=== PATIENT | female | born 1990 | race Hispanic/Latino ===

== ENCOUNTER 2022-03-03 14:50 | Emergency (ER) | payer BC ==
--- OUTSIDE RECORDS SUMMARY | 2022-03-03 14:53 | XMS REPORT | Continuity of Care Document ---
:1990 Author Organization [facility] t Address [address] [place] [address] Care Team Providers Name Role Phone G_Pappas Attending Clinician Unavailable G_Pappas Admitting Clinician Unavailable Payers Payer Name Policy Type Policy Number Effective Date Expiration Date S our [place] WOMEN'S [id number] HEALTH PROGRAM (MEDICAID) Problems Condition Condition Condition Status Onset Resolution Last Treating Co mments Source Name Details Category Date Date Treatment Clinician Date Dysmenorrh Dysmenorrh Problem Active 2019-0 [facility] e[facility] 7-11 da 00:00: Medical 00 Group Menorrhagi Menorrhagi Problem Active 2019-0 [facility] a a 7-11 da 00:00: [facility] 00 Group Oral Oral Problem Active 0 [facility] contracept Contracept 7-01 da ion ion 00:00: Medical 00 Group Condyloma Condyloma Problem Active [facility] acuminata Acuminata da of [facility] Obesity Obesity Problem Active [facility] Anxiety Anxiety Problem Active [facility] Hypertensi Hypertensi Problem Active [facility] ve ve da disorder Disorder [facility]ica [facility] Allergies, Adverse Reactions, Alerts This patient has no known allergies or adverse reactions. Social History Smoking Status Start Date Stop Date Source Former Smoker [facility] Medications Ordered Filled Start Stop Current Ordering Indication Dosage Frequency Signature Comments Components Source Medication Medication Date Date Medication? Clinician (SIG) Name Name acetaminoph acetaminoph No acetaminop [facility] en 300 en 300 hen 300 da mg-codeine mg-codeine mg-codeine Medical 30 mg 30 mg 30 mg Group tablet tablet tablet Bactrim DS Bactrim DS No 1 BID Bactrim DS [facility] 800 mg-160 800 mg-160 800 mg-160 da mg tablet mg tablet mg tablet Medical Take 1 Take 1 Take 1 Group tablet tablet tablet twice a day twice a day twice a by oral by oral day by route for 3 route for 3 oral route days. days. for 3 days. citalopram citalopram No 1 Q1D citalopram [facility] 20 mg 20 mg 20 mg da tablet Take tablet Take tablet Medical 1 tablet 1 tablet Take 1 Group every day every day tablet by oral by oral every day route. route. by oral route. clonazepam clonazepam No clonazepam [facility] 1 mg tablet 1 mg tablet 1 mg d a tablet Medical Group Daysee 0.15 Daysee 0.15 No Daysee [facility] mg-30 mcg mg-30 mcg 0.15 mg-30 da (84)/10 (84)/10 mcg Medical mcg(7) mcg(7) (84)/10 Group tablets,3 tablets,3 mcg(7) month dose month dose tablets,3 pack Take 1 pack Take 1 month dose tablet tablet pack Take every day every day 1 tablet by oral by oral every day route. route. by oral route. meloxicam meloxicam No meloxicam [facility] 15 mg 15 mg 15 mg da tablet tablet tablet Medical Group phentermine phentermine No phentermin [facility] tizanidine tizanidine No tizanidine [facility] 4 mg tablet 4 mg tablet 4 mg d a tablet Medical Group Vital Signs Vital Name Observation Time Observation Value Comments Source BP Diastolic 2020-06-13 00:00:00 93 mm[Hg] [facility] Height 2020-06-13 00:00:00 65 [in_i] [facility] BMI (Body Mass 2020-06-13 00:00:00 37.3 kg/m2 [facility] Group BP Systolic 2020-06-13 00:00:00 132 mm[Hg] [facility] Body Weight 2020-06-13 00:00:00 223.9 [lb_av] [facility] BP Diastolic 2020-05-17 00:00:00 95 mm[Hg] [facility] Height 2020-05-17 00:00:00 65 [in_i] [facility] BMI (Body Mass 2020-05-17 00:00:00 38.2 kg/m2 [facility]) Group BP Systolic 2020-05-17 00:00:00 134 mm[Hg] [facility] Body Weight 2020-05-17 00:00:00 229.7 [lb_av] [facility] BP Diastolic 2019-05-25 00:00:00 92 mm[Hg] [facility] Height 2019-05-25 00:00:00 65 [in_i] [facility] BMI (Body Mass 2019-05-25 00:00:00 40 kg/m2 [facility]) Group BP Systolic 2019-05-25 00:00:00 141 mm[Hg] [facility] Body Weight 2019-05-25 00:00:00 240.3 [lb_av] [facility] BP Diastolic 2019-05-08 00:00:00 90 mm[Hg] [facility] Height 2019-05-08 00:00:00 65 [in_i] [facility] BMI (Body Mass 2019-05-08 00:00:00 40.8 kg/m2 [facility]) Group BP Systolic 2019-05-08 00:00:00 140 mm[Hg] [facility] Body Weight 2019-05-08 00:00:00 245.3 [lb_av] [facility] BP Diastolic 2018-11-22 00:00:00 89 mm[Hg] [facility] Height 2018-11-22 00:00:00 65 [in_i] [facility] BMI (Body Mass 2018-11-22 00:00:00 40.6 kg/m2 [facility] Group BP Systolic 2018-11-22 00:00:00 133 mm[Hg] [facility] Body Weight 2018-11-22 00:00:00 244 [lb_av] [facility] Procedures Procedure Date / Time Performed Performing Clinician Sourc e US, pelvis 2019-05-25 00:00:00 [facility] Caesarean Section 2016-01-06 00:00:00 [facility] Plan of Care Planned Activity Planned Date Details Comments Source Diagnostic Test 2020-06-13 pap, LB + reflex [facility] Pending 00:00:00 to HR HPV if ASC-U Group [code = pap, LB + reflex to HR HPV if ASC-U] Diagnostic Test 2020-06-13 culture, urine [facility] Pending 00:00:00 [code = culture, Group urine] Diagnostic Test 2020-06-13 wet mount, vaginal [facility] Pending 00:00:00 [code = wet mount, Group vaginal] Diagnostic Test 2020-06-13 urinalysis, [facility] 00:00:00 dipstick [code = Group urinalysis, dipstick] Encounters Start End Encounter Admission Attending Care Care Encounter Source Date/Time Date/Time Type Type Clinicians Facility Department ID 2020-09-25 2020-09-25 Outpatient G_Pappas [facility] [id number] [facility] 02:26:00 02:26:00 [facility] 2020-06-14 2020-06-14 Outpatient G_Pappas [facility] [id number] [facility] 12:20:00 12:20:00 807 [facility] 2020-06-13 2020-06-13 Outpatient G_Pappas [facility] [id number] [facility] 04:22:00 04:22:00 [facility] 2020-06-13 2020-06-13 [place] - [id number] Rosalie feldman 00:00:00 00:00:00 [facility] charline Tolliver MD: [address] [place] [phone] , Ph. [phone] 2020-06-01 2020-06-01 Outpatient G_Pappas [facility] [id number] [facility] 12:14:00 12:14:00 805 [facility] 2020-05-19 2020-05-19 Outpatient G_Pappas [facility] [id number] [facility] 10:04:00 10:04:00 712 [facility] 2020-05-17 2020-05-17 Outpatient G_Pappas [facility] [id number] [facility] 05:33:00 05:33:00 710 [facility] 2020-05-17 2020-05-17 [place] - [id number] [facility] 00:00:00 00:00:00 [facility] charline Tolliver MD: [address] [place] [phone] , Ph. [phone] 2019-06-10 2019-06-10 Outpatient G_Pappas [facility] [id number] [place] 11:06:00 11:06:00 709 charline [facility] 2019-05-25 2019-05-25 Kirby [facility] [place] - [id number] [facility] 00:00:00 00:00:00 [facility] charline Tolliver MD: [address] [place] [phone] , Ph. [phone] 2019-05-08 2019-05-08 Mackenzie Davis [facility] [place] - [id number] 1 [facility] 00:00:00 00:00:00 [facility] charline Tanner NP: [address] [place] [phone] , Ph. [phone] 2018-11-22 2018-11-22 Mackenzie Davis [facility] [place] - [id number] 5 [facility] 00:00:00 00:00:00 [facility] charline Tanner NP: [address] [place] [address] [place] [phone] , Ph. [phone] Results Test Description Test Time Test Comments Results Result Comments Source Urinalysis macro (dipstick) panel - Urine 2020-06-13 15:43:3 0 Test Item Value Reference Range Interpretation Comme nts Leukocytes (test code = Leukocytes) Trace Nitrite (test code = Nitrite) positive Urobilinogen (test code = Urobilinogen) .2 Protein (test code = Protein) Negative pH (test code = pH) 7.0 Blood (test code = Blood) Non-Hemolyzed: Trace Specific Milford (test code = Specific [place]) 1.025 Ketone (test code = Ketone) Negative Bilirubin (test code = Bilirubin) Negative Glucose (test code = Glucose) Negative Appearance (test code = Appearance) Slightly Cloudy Color (test code = Color) Yellow [facility] [id number] 08:55:00 Test Item Value Reference Range Interpretation Comments Test (test code = negative Test) [facility], [id number] 10:59:00 Test Item Value Reference Range Interpretation Comments Test (test code = negative Test) [facility], [id number] 10:59:00 Test Item Value Reference Range Interpretation Comments Test (test code = negative Test) [facility] (dipstick) panel - [id number] 10:44:00 Test Item Value Reference Range Interpretation Comments Leukocytes (test code = Negative Leukocytes) Nitrite (test code = negative Nitrite) Urobilinogen (test code = .2 Urobilinogen) Protein (test code = Negative Protein) pH (test code = pH) 7.0 Blood (test code = Blood) Non-Hemolyzed: Trace Specific Milford (test 1.025 code = Specific [place]) Ketone (test code = Negative Ketone) Bilirubin (test code = Negative Bilirubin) Glucose (test code = Negative Glucose) Appearance (test code = Clear Appearance) Color (test code = Color) Yellow [facility] macro (dipstick) panel - [id number] 10:44:00 Test Item Value Reference Range Interpretation Comments Leukocytes (test code = Negative Leukocytes) Nitrite (test code = negative Nitrite) Urobilinogen (test code = .2 Urobilinogen) Protein (test code = Negative Protein) pH (test code = pH) 7.0 Blood (test code = Blood) Non-Hemolyzed: Trace Specific Milford (test 1.025 code = Specific Mil[place]) Ketone (test code = Negative Ketone) Bilirubin (test code = Negative Bilirubin) Glucose (test code = Negative Glucose) Appearance (test code = Clear Appearance) Color (test code = Color) Yellow [facility] W Auto Differential panel - [id number] 09:43:00 Test Item Value Reference Range Interpretation Comments white blood count (test code = 11.8 K/uL 4.0-11.5 H white blood count) red blood count (test code = red 5.34 M/uL 3.80-5.20 H blood count) hemoglobin (test code = 14.6 g/dL 10.5-15.7 hemoglobin) hematocrit (test code = 47.5 % 34.0-50.0 hematocrit) Erythrocyte mean corpuscular 89.0 fL 86-100 volume [Entitic volume] (test code = 91248-9) Erythrocyte mean corpuscular 27.3 pg 26.2-33.4 hemoglobin [Entitic mass] (test code = 23272-5) mean corpuscular HGB conc (test 30.7 g/dL 30-34 code = mean corpuscular HGB conc) red cell distribution width (test 13.4 % 12.0-15.5 code = red cell distribution width) platelet count (test code = 339 K/uL 165-450 platelet count) mean platelet volume (test code = 11.2 fL 9.4-12.6 mean platelet volume) Neutrophils.segmented/100 71.2 % 44.4-80.1 leukocytes in Blood (test code = 15217-9) Ig% (test code = Ig%) 0.5 % 0.0-0.4 H lymphocyte% (test code = 21.9 % 10.0-50.0 lymphocyte%) Monocytes/100 leukocytes in Blood 4.8 % 3.6-12.0 by Automated count (test code = 5905-5) Eosinophils/100 leukocytes in 1.0 % 0.0-5.4 Blood by Automated count (test code = 713-8) Basophils/100 leukocytes in 0.6 % 0.1-1.2 Unspecified specimen (test code = 18873-0) absolute neutrophil count (test 8.40 K/uL 1.56-6.13 H code = absolute neutrophil count) Ig# (test code = Ig#) 0.1 K/uL 0.0-0.03 H Lymphocytes [#/volume] in 2.6 K/uL 1.18-3.74 Unspecified specimen by Automated count (test code = 03974-0) mono # (test code = mono #) 0.57 K/uL 0.24-0.86 eos # (test code = eos #) 0.12 K/uL 0.04-0.36 basophil # (test code = basophil 0.07 K/uL 0.01-0.08 #) NRBC% (test code = NRBC%) 0 /100 WBC 0-0.2 NRBC# (test code = NRBC#) 0 K/uL [facility], [id number] 09:43:00 NeutrophilsBandLymphocyteMonocyteMetamyelocytePlatelet EstimateToxic VacuolationGiant PlateletsMaNorth Mississippi Medical CenterHemoglobin A1c [Mass/volume] in [id number] 09:43:00 Test Item Value Reference Range Interpretation Comments Hemoglobin A1c in Blood (test code = 5.8 % 4.0-6.0 84300-0) [facility] 2000 panel - Serum or Plasma 2019-05-08 09:43:00 Test Item Value Reference Range Interpretation Comments glucose (test code = glucose) 106 mg/dL 74-106 Urea nitrogen [Mass/volume] in 11 mg/dL 6-20 Serum or Plasma (test code = 3094-0) Osmolality of Serum or Plasma 274 280-300 L (test code = 2692-2) creatinine (test code = 0.6 mg/dL 0.50-0.90 creatinine) glomerular filtration rate (test >60.00 code = glomerular filtration rate) Urea nitrogen/Creatinine [Mass 18.3 12-20 Ratio] in Serum or Plasma (test code = 3097-3) sodium level (test code = sodium 137 mmol/L 135-145 level) Potassium [Moles/volume] in Body 4.5 mmol/L 3.5-5.2 fluid (test code = 2821-7) chloride level (test code = 97 mmol/L 98-108 L chloride level) CO2 (test code = CO2) 28 mmol/L 21-32 anion gap (test code = anion gap) 16.5 mEq/L 12-20 calcium level (test code = calcium 9.5 mg/dL 8.6-10.0 level) total protein (test code = total 7.4 g/dL 6.6-8.7 protein) albumin (test code = albumin) 4.1 g/dL 3.5-5.2 globulin (test code = globulin) 3.3 gm/dL A/G ratio (test code = A/G ratio) 1.2 >1.0 bilirubin,total (test code = <0.3 0.0-1.2 bilirubin,total) AST/SGOT (test code = AST/SGOT) 23 U/L 15-32 Alanine aminotransferase 28 U/L 0-33 [Enzymatic activity/volume] in Serum or Plasma (test code = 1742-6) Alkaline phosphatase [Enzymatic 72 U/L 35-105 activity/volume] in Serum or Plasma (test code = 6768-6) [facility]port[facility]yrotropin [Units/volume] in Serum or [id number] 09:43:00 Test Item Value Reference Range Interpretation Comments Thyrotropin [Units/volume] in 1.74 uIU/mL 0.36-3.74 Serum or Plasma (test code = 3016-3) [facility]portChoriogonadotropin.beta subunit [Units/volume] in Serum or [id number] 09:43:00 Test Item Value Reference Range Interpretation Comments HCG quantitative (test code = HCG <0.1 0-5 quantitative) [facility] W Auto Differential panel - [id number] 09:43:00 Test Item Value Reference Range Interpretation Comments white blood count (test code = 11.8 K/uL 4.0-11.5 H white blood count) red blood count (test code = red 5.34 M/uL 3.80-5.20 H blood count) hemoglobin (test code = 14.6 g/dL 10.5-15.7 hemoglobin) hematocrit (test code = 47.5 % 34.0-50.0 hematocrit) Erythrocyte mean corpuscular 89.0 fL 86-100 volume [Entitic volume] (test code = 67435-9) Erythrocyte mean corpuscular 27.3 pg 26.2-33.4 hemoglobin [Entitic mass] (test code = 11431-4) mean corpuscular HGB conc (test 30.7 g/dL 30-34 code = mean corpuscular HGB conc) red cell distribution width (test 13.4 % 12.0-15.5 code = red cell distribution width) platelet count (test code = 339 K/uL 165-450 platelet count) mean platelet volume (test code = 11.2 fL 9.4-12.6 mean platelet volume) Neutrophils.segmented/100 71.2 % 44.4-80.1 leukocytes in Blood (test code = 11046-9) Ig% (test code = Ig%) 0.5 % 0.0-0.4 H lymphocyte% (test code = 21.9 % 10.0-50.0 lymphocyte%) Monocytes/100 leukocytes in Blood 4.8 % 3.6-12.0 by Automated count (test code = 5905-5) Eosinophils/100 leukocytes in 1.0 % 0.0-5.4 Blood by Automated count (test code = 713-8) Basophils/100 leukocytes in 0.6 % 0.1-1.2 Unspecified specimen (test code = 63874-2) absolute neutrophil count (test 8.40 K/uL 1.56-6.13 H code = absolute neutrophil count) Ig# (test code = Ig#) 0.1 K/uL 0.0-0.03 H Lymphocytes [#/volume] in 2.6 K/uL 1.18-3.74 Unspecified specimen by Automated count (test code = 84014-0) mono # (test code = mono #) 0.57 K/uL 0.24-0.86 eos # (test code = eos #) 0.12 K/uL 0.04-0.36 basophil # (test code = basophil 0.07 K/uL 0.01-0.08 #) NRBC% (test code = NRBC%) 0 /100 WBC 0-0.2 NRBC# (test code = NRBC#) 0 K/uL [facility], [id number] 09:43:00 NeutrophilsBandLymphocyteMonocyteMetamyelocytePlatelet EstimateToxic VacuolationGiant PlateletsSinging River GulfportHemoglobin A1c [Mass/volume] in [id number] 09:43:00 Test Item Value Reference Range Interpretation Comments Hemoglobin A1c in Blood (test code = 5.8 % 4.0-6.0 62060-4) [facility] 2000 panel - Serum or Plasma 2019-05-08 09:43:00 Test Item Value Reference Range Interpretation Comments glucose (test code = glucose) 106 mg/dL 74-106 Urea nitrogen [Mass/volume] in 11 mg/dL 6-20 Serum or Plasma (test code = 3094-0) Osmolality of Serum or Plasma 274 280-300 L (test code = 2692-2) creatinine (test code = 0.6 mg/dL 0.50-0.90 creatinine) glomerular filtration rate (test >60.00 code = glomerular filtration rate) Urea nitrogen/Creatinine [Mass 18.3 12-20 Ratio] in Serum or Plasma (test code = 3097-3) sodium level (test code = sodium 137 mmol/L 135-145 level) Potassium [Moles/volume] in Body 4.5 mmol/L 3.5-5.2 fluid (test code = 2821-7) chloride level (test code = 97 mmol/L 98-108 L chloride level) CO2 (test code = CO2) 28 mmol/L 21-32 anion gap (test code = anion gap) 16.5 mEq/L 12-20 calcium level (test code = calcium 9.5 mg/dL 8.6-10.0 level) total protein (test code = total 7.4 g/dL 6.6-8.7 protein) albumin (test code = albumin) 4.1 g/dL 3.5-5.2 globulin (test code = globulin) 3.3 gm/dL A/G ratio (test code = A/G ratio) 1.2 >1.0 bilirubin,total (test code = <0.3 0.0-1.2 bilirubin,total) AST/SGOT (test code = AST/SGOT) 23 U/L 15-32 Alanine aminotransferase 28 U/L 0-33 [Enzymatic activity/volume] in Serum or Plasma (test code = 1742-6) Alkaline phosphatase [Enzymatic 72 U/L 35-105 activity/volume] in Serum or Plasma (test code = 6768-6) [facility]portThyrotropin [Units/volume] in Serum or [id number] 09:43:00 Test Item Value Reference Range Interpretation Comments Thyrotropin [Units/volume] in 1.74 uIU/mL 0.36-3.74 Serum or Plasma (test code = 3016-3) [facility]portChoriogonadotropin.beta subunit [Units/volume] in Serum or [id number] 09:43:00 Test Item Value Reference Range Interpretation Comments HCG quantitative (test code = HCG <0.1 0-5 quantitative) [facility]portChlamydia trachomatis+Neisseria gonorrhoeae DNA [Presence] in Cervix by Probe and target amplification [id number] 09:43:00 ResultsMaNorth Mississippi Medical CenterMicroscopic observation [Identifier] in Cervix by Cyto stain.thin [id number] 00:00:00ResultsMaNorth Mississippi Medical CenterUrinalysis macro (dipstick) panel - [id number] 15:20:22 Test Item Value Reference Range Interpretation Comments Leukocytes (test code = Leukocytes) Trace Nitrite (test code = Nitrite) negative Urobilinogen (test code = .2 Urobilinogen) Protein (test code = Protein) 30 pH (test code = pH) 6.0 Blood (test code = Blood) Moderate Specific Milford (test code = 1.030 Specific [place]) Ketone (test code = Ketone) Small Bilirubin (test code = Bilirubin) Negative Glucose (test code = Glucose) Negative Appearance (test code = Appearance) Clear Color (test code = Color) Yellow [facility] test, [id number] 15:19:02 Test Item Value Reference Range Interpretation Comments Test (test code = negative Test) [facility]
[2022-03-03] MEDS ORDERED: ONDANSETRON 4 MG/2 ML VIAL ONE (15:19)
[2022-03-03] MEDS ORDERED: FAMOTIDINE 20 MG/2 ML VIAL IV ONE (15:19)
[2022-03-03] MEDS ORDERED: NA CHLORIDE 0.9% 1,000 ML ONE (15:19)
[2022-03-03 15:29] LABS: Urine Blood Trace-intact (Negative); Urine Glucose Negative (Negative); Urine Protein Negative (Negative); Urine Specific Gravity >=1.030 (1.005-1.030)
[2022-03-03 15:39] LABS: Hematocrit 44.8 % (36.0-45.0); Lymphocytes % 25.1 % (15.3-44.8); MPV 9.3 fL (7.6-11.3); RBC Red Blood Cell Count 5.02 M/uL (3.86-4.86)
[2022-03-03 15:45] LABS: Albumin 3.5 g/dL (3.4-5.0); Bilirubin Total 0.3 mg/dL (0.2-1.0); Protein, Total 7.8 g/dL (6.4-8.2)
--- NOTE | 2022-03-03 16:13 | RAD REPORT ---
EXAM DESCRIPTION: US - Abdomen Exam Limited - 03/03/2022 4:05 pm CLINICAL HISTORY: right sided abd pain, vomiting COMPARISON: No comparisons FINDINGS: Suboptimal evaluation due to body habitus. At least 1 shadowing gallstone is suspected. No gallbladder wall thickening is identified. No pericholecystic fluid. The common bile duct measures 4 millimeters and is nondilated. IMPRESSION: Cholelithiasis but no sonographic evidence acute cholecystitis.
--- NOTE | 2022-03-03 16:30 | RAD REPORT ---
EXAM DESCRIPTION: CTAbdomen Pelvis W Contrast - 03/03/2022 4:16 pm CLINICAL HISTORY: Abdominal pain, acute, nonlocalized COMPARISON: No comparisons TECHNIQUE: CT of the abdomen and pelvis was performed. All CT scans are performed using dose optimization technique as appropriate and may include automated exposure control or mA/KV adjustment according to patient size. FINDINGS: Lower chest: No acute abnormality. Liver: No acute abnormality or suspicious lesions. Biliary: No biliary ductal dilatation. Stomach: No significant focal abnormality. Duodenum: No significant focal abnormality. Pancreas: No significant abnormality. Spleen: No significant abnormality. Adrenal: No suspicious lesions. Kidney/ureter: No hydronephrosis. Punctate stone in the lower pole left kidney. Too small to characte rize and/or benign appearing renal lesions are noted. Retroperitoneum: No retroperitoneal adenopathy. Vascular: No aneurysm. Bowel: Normal appendix.. Circumferential thickening of the descending and sigmoid colon. Diverticulos is is present but no evidence of acute diverticulitis. Peritoneum: Small fat containing umbilical hernia. Bladder: Grossly unremarkable. Reproductive: No adnexal masses. Bones: No acute fracture. Mild disc height loss at L5-S1. Other: n/a IMPRESSION: Mild colonic wall thickening of the descending and sigmoid colon suggestive of a mild co litis. Normal appendix. No bowel obstruction.
--- NOTE | 2022-03-03 16:52 | EDPHYS ---
Physician Documentation [facility] Name: Kiesha Joiner Age: 31 yrs Sex: Female : 1990 Arrival Date: 03/03/2022 Time: 14:53 Bed 17 Private MD: ED Physician Kojo Doyle HPI: 03/03 15:06 This 31 yrs old Female presents to ER via Unassigned with complaints of rn Nausea/Vomiting. 15:06 The patient presents to the emergency department with nausea, vomiting, abdominal pain, rn of the right lower quadrant. Onset: The symptoms/episode began/occurred 2 day(s) ago. Possible causes: unknown. The symptoms are aggravated by pressure, The symptoms are alleviated by nothing. Associated signs and symptoms: Pertinent positives: abdominal pain, nausea, vomiting, Pertinent negatives: fever. Severity of symptoms: At their worst the symptoms were mild in the emergency department the symptoms are unchanged. The patient has experienced similar episodes in the past. The patient has not recently seen a physician. Pt reports right lower abd pain for 2 days, assoc with nausea and vomiting. Reports seems to happen monthly, comes and then goes, crampy. Reports sometimes worse with food. No hematemesis. Reports stool looks dark/green. . Historical: - Allergies: 15:08 No Known Allergies; ww - PMHx: 15:08 neck pain; ww - PSHx: 15:08 Left ovarian dermoid cyst; ww - Immunization history:: Adult Immunizations up to date. - Social history:: Smoking status: Patient denies any tobacco usage or history of. - Family history:: not pertinent. - Hospitalizations: : No recent hospitalization is reported. ROS: 15:06 Constitutional: Negative for fever, chills, and weight loss, Eyes: Negative for injury, rn pain, redness, and discharge, ENT: Negative for injury, pain, and discharge, Neck: Negative for injury, pain, and swelling, Cardiovascular: Negative for chest pain, palpitations, and edema, Respiratory: Negative for shortness of breath, cough, wheezing, and pleuritic chest pain, Abdomen/GI: Negative for diarrhea, and constipation, Back: Negative for injury and pain, : Negative for injury, bleeding, discharge, and swelling, MS/Extremity: Negative for injury and deformity, Skin: Negative for injury, rash, and discoloration, Neuro: Negative for headache, numbness, tingling, and seizure. Exam: 15:06 Constitutional: This is a well developed, well nourished patient who is awake, alert, rn and in no acute distress. Head/Face: Normocephalic, atraumatic. Eyes: Conjunctiva and sclera are non-icteric and not injected. Periorbital areas with no swelling, redness, or edema. ENT: Mucous membranes moist. Cardiovascular: Regular rate and rhythm. No pulse deficits. Respiratory: No increased work of breathing, no retractions or nasal flaring. Abdomen/GI: soft, + mild RLQ tenderness without guarding or rebound, no masses Skin: Warm, dry MS/ Extremity: Pulses equal, no cyanosis. Neuro: Awake and alert, GCS 15 Vital Signs: 15:06 BP 148 / 99; Pulse 85; Resp 16; Temp 98.6(O); Pulse Ox 100% on R/A; Weight 114.76 kg ww (M); Height 5 ft. 5 in. (165.10 cm); 17:04 BP 124 / 88; Pulse 97; Resp 18; Pulse Ox 98% on R/A; ww 15:06 Body Mass Index 42.10 (114.76 kg, 165.10 cm) ww MDM: 14:56 Patient medically screened. rn 16:51 Differential diagnosis: Nonspecific abd pain, gastritis, cholecystitis, appendicitis, rn diverticulitis, viral gastroenteritis, gastroenteritis, colitis. Data reviewed: vital signs, nurses notes, lab test result(s), radiologic studies, CT scan, ultrasound, and as a result, I will discharge patient. Counseling: I had a detailed discussion with the patient and/or guardian regarding: the historical points, exam findings, and any diagnostic results supporting the discharge/admit diagnosis, lab results, radiology results, the need for outpatient follow up, to return to the emergency department if symptoms worsen or persist or if there are any questions or concerns that arise at home. Response to treatment: the patient's symptoms have mildly improved after treatment, and as a result, I will discharge patient. Special discussion: Based on the patient's Hx, exam, and Dx evaluation, there is no indication for emergent surgery or inpatient Tx. It is understood by the patient/guardian that if the Sx's persist or worsen they need to return immediately for re-evaluation. I discussed with the patient/guardian in detail that at this point there is no indication for admission to the hospital. It is understood, however, that if the symptoms persist or worsen the patient needs to return immediately for re-evaluation. 03/03 15:04 Order name: CBC with Diff; Complete Time: 15:51 rn 03/03 15:04 Order name: CMP; Complete Time: 15:51 rn 03/03 15:04 Order name: Lipase; Complete Time: 15:51 rn 03/03 15:04 Order name: CT Abd/Pelvis - IV Contrast Only; Complete Time: 16:39 rn 03/03 15:29 Order name: Urine Dipstick-Ancillary; Complete Time: 15:51 EDMS 03/03 15:04 Order name: IV Saline Lock; Complete Time: 15:19 rn 03/03 15:04 Order name: Labs collected and sent; Complete Time: 15:19 rn 03/03 15:04 Order name: US Abdomen Limited; Complete Time: 16:19 rn 03/03 15:04 Order name: Urine Dipstick-Ancillary (obtain specimen); Complete Time: 15:30 rn 03/03 15:04 Order name: Urine Test (obtain specimen); Complete Time: 15:31 rn Administered Medications: 15:15 Drug: NS 0.9% 1000 ml Route: IV; Rate: 1 bolus; Site: right antecubital; ww 15:16 Drug: Pepcid (famotidine) 20 mg Route: IVP; Site: right antecubital; ww 15:19 Drug: Zofran (Ondansetron) 4 mg Route: IVP; Site: right antecubital; ww 17:03 Drug: Flagyl (metroNIDAZOLE) 500 mg Volume: 100 ml; Route: IVPB; Rate: 200 ml/hr; ww Infused Over: 30 mins; Site: right antecubital; 17:04 Drug: Cipro (ciprofloxacin) 500 mg Route: PO; ww Disposition Summary: 03/03/22 16:52 Discharge Ordered Location: Home rn Problem: new rn Symptoms: have improved rn Condition: Stable rn Diagnosis - Infectious gastroenteritis and colitis, unspecified rn - Other cholelithiasis without obstruction rn Followup: rn - With: Private Physician - When: As needed - Reason: Recheck today's complaints, Re-evaluation by your physician Discharge Instructions: - Discharge Summary Sheet rn - Cholelithiasis rn - Colitis rn Forms: - Medication Reconciliation Form rn - Thank You Letter rn - Antibiotic rn bone marrow transplant - Prescription Opioid Use rn - Work release form em1 Prescriptions: - Flagyl 500 mg Oral Tablet - take 1 tablet by ORAL route every 8 hours for 10 days; 30 tablet; Refills: 0, rn Product Selection Permitted - Cipro 500 mg Oral Tablet - take 1 tablet by ORAL route every 12 hours for 10 days; 20 tablet; Refills: 0, rn Product Selection Permitted - ondansetron 4 mg Oral tablet,disintegrating - take 1 tablet by ORAL route every 8 hours As needed; 10 tablet; Refills: 0, cp Product Selection Permitted Signatures: Dispatcher [employer] EDKojo Huntley MD MD rn Wood, Whitney, RN RN ww Corrections: (The following items were deleted from the chart) 15:09 15:08 Allergies: Aspirin; oliverio duron
--- NOTE | 2022-03-03 16:52 | ER ---
Nurse's Notes [facility] Name: Kiesha Joiner Age: 31 yrs Sex: Female : 1990 Arrival Date: 03/03/2022 Time: 14:53 Bed 17 Private MD: Diagnosis: Infectious gastroenteritis and colitis, unspecified;Other cholelithiasis without obstruction Presentation: 03/03 15:06 Chief complaint: Patient states: Vomited yesterday and noticed dark stools today with ww right lower abdominal pain. Patient states that she has been having nausea, vomiting and abdominal pain off and on for 3 months. Coronavirus screen: Vaccine status: Patient reports receiving the 2nd dose of the covid vaccine. Client denies travel out of the [place] in the last 14 days. Ebola Screen: Patient denies travel to an Ebola-affected area in the 21 days before illness onset. Initial Sepsis Screen: Does the patient meet any 2 criteria? No. Patient's initial sepsis screen is negative. Does the patient have a suspected source of infection? No. Patient's initial sepsis screen is negative. Risk Assessment: Do you want to hurt yourself or someone else? Patient reports no desire to harm self or others. Onset of symptoms is unknown. 15:06 Method Of Arrival: Ambulatory ww 15:06 Acuity: KONSTANTIN 3 ww Triage Assessment: 15:08 General: Appears in no apparent distress. Behavior is calm, cooperative. Pain: ww Complains of pain in umbilical area, right upper quadrant and right lower quadrant. Neuro: Level of Consciousness is awake, alert, obeys commands, Oriented to person, place, time, situation, Moves all extremities. Gait is steady, Speech is normal. Cardiovascular: Capillary refill Patient's skin is warm and dry. Respiratory: Airway is patent Respiratory effort is even, unlabored, Respiratory pattern is regular, symmetrical. GI: Abdomen is round obese, Reports lower abdominal pain, upper abdominal pain, cramping, diarrhea, nausea, vomiting. Derm: Skin is intact, is healthy with good turgor, Skin is pink, warm \T\ dry. Musculoskeletal: No signs and/or symptoms reported regarding the musculoskeletal system. Historical: - Allergies: 15:08 No Known Allergies; ww - PMHx: 15:08 neck pain; ww - PSHx: 15:08 Left ovarian dermoid cyst; ww - Immunization history:: Adult Immunizations up to date. - Social history:: Smoking status: Patient denies any tobacco usage or history of. - Family history:: not pertinent. - Hospitalizations: : No recent hospitalization is reported. Screenin:10 Abuse screen: Denies threats or abuse. Denies injuries from another. Nutritional ww screening: No deficits noted. Tuberculosis screening: No symptoms or risk factors identified. Fall Risk None identified. Assessment: 15:10 Reassessment: Patient appears in no apparent distress at this time. No changes from ww previously documented assessment. see triage assessment. GI: Abd is soft Abdomen is tender to palpation in epigastric area, umbilical area, right upper quadrant and right lower quadrant. 16:18 Reassessment: Patient appears in no apparent distress at this time. No changes from ww previously documented assessment. Patient and/or family updated on plan of care and expected duration. Pain level reassessed. Patient is alert, oriented x 3, equal unlabored respirations, skin warm/dry/pink. 17:04 Reassessment: Patient appears in no apparent distress at this time. No changes from ww previously documented assessment. Patient and/or family updated on plan of care and expected duration. Pain level reassessed. Patient is alert, oriented x 3, equal unlabored respirations, skin warm/dry/pink. Vital Signs: 15:06 BP 148 / 99; Pulse 85; Resp 16; Temp 98.6(O); Pulse Ox 100% on R/A; Weight 114.76 kg ww (M); Height 5 ft. 5 in. (165.10 cm); 17:04 BP 124 / 88; Pulse 97; Resp 18; Pulse Ox 98% on R/A; ww 15:06 Body Mass Index 42.10 (114.76 kg, 165.10 cm) ww ED Course: 14:53 Patient arrived in ED. ds1 14:56 Kojo Doyle MD is Attending Physician. rn 15:06 Kayla Chu RN is Primary Nurse. ww 15:08 Triage completed. ww 15:10 Arm band placed on. ww 15:10 Patient has correct armband on for positive identification. Bed in low position. Call ww light in reach. Side rails up X 1. Pulse ox on. NIBP on. 15:13 Inserted saline lock: 20 gauge in right antecubital area, using aseptic technique. zm Blood collected. 15:19 Lipase Sent. zm 15:19 CMP Sent. zm 15:19 CBC with Diff Sent. zm 16:07 US Abdomen Limited In Process Unspecified. EDMS 16:18 CT Abd/Pelvis - IV Contrast Only In Process Unspecified. EDMS 17:39 No provider procedures requiring assistance completed. IV discontinued, intact, ww bleeding controlled, No redness/swelling at site. Pressure dressing applied. Administered Medications: 15:15 Drug: NS 0.9% 1000 ml Route: IV; Rate: 1 bolus; Site: right antecubital; ww 15:16 Drug: Pepcid (famotidine) 20 mg Route: IVP; Site: right antecubital; ww 15:19 Drug: Zofran (Ondansetron) 4 mg Route: IVP; Site: right antecubital; ww 17:03 Drug: Flagyl (metroNIDAZOLE) 500 mg Volume: 100 ml; Route: IVPB; Rate: 200 ml/hr; ww Infused Over: 30 mins; Site: right antecubital; 17:04 Drug: Cipro (ciprofloxacin) 500 mg Route: PO; ww Outcome: 16:52 Discharge ordered by . rn 17:39 Discharged to home ambulatory. ww 17:39 Condition: stable 17:39 Discharge instructions given to patient, Instructed on discharge instructions, follow up and referral plans. medication usage, safety practices, Demonstrated understanding of instructions, follow-up care, medications, Prescriptions given X 3. 17:39 Patient left the ED. ww Signatures: Dispatcher [employer] EDNC Lissy Sterling ds1 Kojo Doyle MD MD rn Wood, Whitney, RN RN ww Martinez, Zaina zm Corrections: (The following items were deleted from the chart) 15:09 15:08 Allergies: Aspirin; ww ww
[2022-03-03] MEDS ORDERED: CIPROFLOXACIN HCL 500 MG TAB ONE (17:03)
[2022-03-03] MEDS ORDERED: METRONIDAZOLE 500mg IVPB 500 MG/100 ML BAG IV ONE (17:04)
[2022-03-03 22:17] VITALS: TEMP 98.6
[2022-03-03 22:18] VITALS: BP 124/88; O2SAT 98
== END 2022-03-03 17:39 | disposition home or self-care (01) ==
LOC: ER 14:50
DX: A09 Infectious gastroenteritis and colitis, unspecified (principal); K80.80 Other cholelithiasis without obstruction; R11.2 Nausea with vomiting, unspecified
CPT/HCPCS: 85025; 36415; 81003; 83690; 80053; 74177; 76705; Q9967; J7030; J2405; J3490; 96374; 96375; 99284

== ENCOUNTER 2024-05-17 11:15 | Emergency (ER) | payer BC, OTHER ==
--- OUTSIDE RECORDS SUMMARY | 2024-05-17 11:19 | XMS REPORT | Continuity of Care Document ---
Author Name Unknown Address [address] [facility] [address] [place] [address] [facility] Address [address] [facility] [address] [place] [address] Care Team Providers Care Accessibility Lift Technician Name Role Phone KAYLA LUNDBERG Primary Care Physician UnavailVIRAJ Jesus Attending Clinician Unavailable AMARILYS ZHONG Attending Clinician Unavailable AMARILYS ZHONG Attending Clinician Unavailable VIVEK PEREZ Attending Clinician Unavailable Vivek Perez MD Attending Clinician [phone] ROSSANA NICHOLAS Attending Clinician Unavailable Hawkins_Rosalie Attending Clinician Unavailable Doctor Unassigned, Odin Attending Clinician U CARRI Orr Attending Clinician Unavailable AYANNA_ROSS Attending Clinician Unavailable G_Pappas Attending Clinician Unavailable KIRBY TOLLIVER Attending Clinician UnavailMACKENZIE Farias Attending Clinician Unavailable KIRBY GARZA Attending Clinician UnavailJOANNE mendoza BA Attending Clinician Unavailable MEIR KAYE Attending Clinician Unavailable LEEROY MAI Attending Clinician Unavailable HARSHA ENGEL Attending Clinician Unavailable DAYA RAMIREZ Attending Clinician Unavailable OZIEL GRIFFIN Attending Clinician UnavailJORGE A Crespo Attending Clinician Unavailable AAMRILYS ZHONG Admitting Clinician Unavailable Danna_Rosalie Admitting Clinician Unavailable CARRI DANIEL Admitting Clinician Unavailable CRISTIAN Admitting Clinician Unavailable G_Pappas Admitting Clinician Unavailable KIRBY TOLLIVER Admitting Clinician UnavailHARSHA Francisco Admitting Clinician Unavailable KIRBY GARZA Admitting Clinician Unavailabl e Payers Payer Name Policy Type Policy Number Effective Date Expirati on Date Source [place] [id number] 2019 00:[place]00 [place] [id number] 2023 00[place]00[place] [id number] 2019 00:00:00 [place]ICAID[place] [id number] [facility] (MEDICAID HMO) [id number] Problems Condition Name Condition Details Condition Category Status Onset Date Resolution Date Last Treatment Date Treating Clinician Comments Source Mucopurule nt conjunctiv itis of bilateral eyes Mucopurule nt Conjunctiv itis of Bilateral Eyes Problem Active 07-15 00:00: 00 [facility] Dysmenorrh ea Dysmenorrh ea Problem Active 05-18 00:00: 00 [facility] Menorrhagi a Menorrhagi a Problem Active 05-18 00:00: 00 [facility] Uses oral contracept ion Uses Oral Contracept ion Problem Active 05-08 00:00: 00 [facility] Condyloma acuminata of vulva Condyloma Acuminata of Vulva Problem Active [facility] Obesity Ob[facility] Anxiety Anxiety Problem [facility] Hypertensi ve disorder Hypertensi ve Disorder Problem Active [facility] Allergies, Adverse Reactions, Alerts Allergy Name Allergy Type Status Severity Reaction(s) Onset Date Inactive Date Treating Clinician Comments Source DULOXETI NE DRUG INGREDI Active Hallucinates 01-08 00:00: 00 [facility] Duloxeti ne Propensi ty to adverse reaction s Active Hallucinatio ns 01-08 00:00: 00 [facility] NO KNOWN ALLERGIE S Drug Class Active [facility] Cymbalta Allergy to substanc e Active Severe Other [facility] Tizanidi ne Allergy to substanc e Active Severe Other [facility] Social History Social Habit Start Date Stop Date Quantity Comments Source Sexual orientation [facility] Exposure to SARS-CoV-2 (event) 2022-12-29 00:00:00 2023-01-08 13:56:00 Not sure [facility] Tobacco use and exposure 2023-01-08 00:00:00 2023-01-08 00:00:00 Smokeless tobacco non-user [facility] Alcohol intake 2023-01-08 00:00:00 2023-01-08 00:00:00 Current drinker of alcohol (finding) [facility] Alcohol Comment 2023-01-08 00:00:00 2023-01-08 00:00:00 social [facility] History of Social function 2023-01-08 00:00:00 2023-01-08 00:00:00 [facility] Sex Assigned At 1990 00:00:00 1990 00:00:00 [facility] Smoking Status Start Date Stop Date Source Tobacco smoking consumption unknown [facility] Former Smoker [facility] Never smoked tobacco [facility] Medications Ordered Medication Name Filled Medication Name Start Date Stop Date Current Medication? Ordering Clinician Indication Dosage Frequency Signature (SIG) Comments Components Source gabapentin 100 mg capsule 01-08 00:00: 00 Yes [id number] 100mg Take 1 capsule by mouth in the morning and 1 capsule at noon and 1 capsule in the evening. Take 1 capsule at bedtime for the first week, then can increase to three times per day as tolerated. [facility] acetaminoph en 300 mg-codeine 30 mg tablet acetaminoph en 300 mg-codeine 30 mg tablet No acetaminop hen 300 mg-codeine 30 mg tablet [facility] Bactrim DS 800 mg-160 mg tablet Take 1 tablet twice a day by oral route for 3 days. Bactrim DS 800 mg-160 mg tablet Take 1 tablet twice a day by oral route for 3 days. No 1 BID Bactrim DS 800 mg-160 mg tablet Take 1 tablet twice a day by oral route for 3 days. [facility] citalopram 20 mg tablet Take 1 tablet every day by oral route. citalopram 20 mg tablet Take 1 tablet every day by oral route. No 1 Q1D citalopram 20 mg tablet Take 1 tablet every day by oral route. [facility] clonazepam 1 mg tablet clonazepam 1 mg tablet No clonazepam 1 mg tablet [facility] Daysee 0.15 mg-30 mcg (84)/10 mcg(7) tablets,3 month dose pack Take 1 tablet every day by oral route. Daysee 0.15 mg-30 mcg (84)/10 mcg(7) tablets,3 month dose pack Take 1 tablet every day by oral route. No Daysee 0.15 mg-30 mcg (84)/10 mcg(7) tablets,3 month dose pack Take 1 tablet every day by oral route. [facility] meloxicam 15 mg tablet meloxicam 15 mg tablet No meloxicam 15 mg tablet [facility] phentermine phentermine No ph entermin e [facility] tizanidine 4 mg tablet tizanidine 4 mg tablet No tizanidine 4 mg tablet [facility] clonazepam 1 mg tablet TAKE 1 TABLET BY MOUTH EVERY NIGHT AT BEDTIME NEEDED clonazepam 1 mg tablet TAKE 1 TABLET BY MOUTH EVERY NIGHT AT BEDTIME NEEDED No clonazepam 1 mg tablet TAKE 1 TABLET BY MOUTH EVERY NIGHT AT BEDTIME NEEDED [facility] cyclobenzap rine 10 mg tablet TAKE 1/2-1 TABLET BY MOUTH THREE TIMES DAILY NEEDED cyclobenzap rine 10 mg tablet TAKE 1/2-1 TABLET BY MOUTH THREE TIMES DAILY NEEDED No cyclobenza glenn 10 mg tablet TAKE 1/2-1 TABLET BY MOUTH THREE TIMES DAILY NEEDED [facility] Daysee 0.15 mg-30 mcg (84)/10 mcg(7) tablets,3 month dose pack TAKE 1 TABLET BY MOUTH EVERY DAY Daysee 0.15 mg-30 mcg (84)/10 mcg(7) tablets,3 month dose pack TAKE 1 TABLET BY MOUTH EVERY DAY No Daysee 0.15 mg-30 mcg (84)/10 mcg(7) tablets,3 month dose pack TAKE 1 TABLET BY MOUTH EVERY DAY [facility] diclofenac sodium 75 mg tablet,joseph yed release TAKE 1 TABLET BY MOUTH TWICE DAILY diclofenac sodium 75 mg tablet,joseph yed release TAKE 1 TABLET BY MOUTH TWICE DAILY No diclofenac sodium 75 mg tablet,del ayed release TAKE 1 TABLET BY MOUTH TWICE DAILY [facility] fluconazole 150 mg tablet TAKE 1 TABLET BY MOUTH NOW AND REPEAT IN 3 DAYS fluconazole 150 mg tablet TAKE 1 TABLET BY MOUTH NOW AND REPEAT IN 3 DAYS No fluconazol e 150 mg tablet TAKE 1 TABLET BY MOUTH NOW AND REPEAT IN 3 DAYS [facility] fluoxetine 20 mg capsule TAKE 1 CAPSULE BY MOUTH EVERY DAY fluoxetine 20 mg capsule TAKE 1 CAPSULE BY MOUTH EVERY DAY No fluoxetine 20 mg capsule TAKE 1 CAPSULE BY MOUTH EVERY DAY [facility] hydrocodone 10 mg-acetamin ophen 325 mg tablet TAKE 1 TABLET BY MOUTH THREE TIMES DAILY NEEDED hydrocodone 10 mg-acetamin ophen 325 mg tablet TAKE 1 TABLET BY MOUTH THREE TIMES DAILY NEEDED No hydrocodon e 10 mg-acetami nophen 325 mg tablet TAKE 1 TABLET BY MOUTH THREE TIMES DAILY NEEDED [facility] isotretinoi n 30 mg capsule TAKE ONE CAPSULE BY MOUTH TWICE DAILY WITH FOOD isotretinoi n 30 mg capsule TAKE ONE CAPSULE BY MOUTH TWICE DAILY WITH FOOD No isotretino in 30 mg capsule TAKE ONE CAPSULE BY MOUTH TWICE DAILY WITH FOOD [facility] Otezla 30 mg tablet Otezla 30 mg tablet No Otezla 30 mg tablet [facility] tobramycin 0.3 % eye drops INSTILL 1 DROP INTO AFFECTED EYE(S) BY OPHTHALMIC ROUTE EVERY 4 HOURS tobramycin 0.3 % eye drops INSTILL 1 DROP INTO AFFECTED EYE(S) BY OPHTHALMIC ROUTE EVERY 4 HOURS No tobramycin 0.3 % eye drops INSTILL 1 DROP INTO AFFECTED EYE(S) BY OPHTHALMIC ROUTE EVERY 4 HOURS [facility] Vyvanse 40 mg capsule TAKE 1 CAPSULE BY MOUTH EVERY MORNING Vyvanse 40 mg capsule TAKE 1 CAPSULE BY MOUTH EVERY MORNING No Vyvanse 40 mg capsule TAKE 1 CAPSULE BY MOUTH EVERY MORNING [facility] Vital Signs Vital Name Observation Time Observation Value Comments S ource BMI (Body Mass Index) 2023-07-15 00:00:00 39.5 kg/m2 [facility] dical [facility] Body Weight 2023-07-15 00:00:00 3800 [oz_av] [facility] BP Diastolic 2023-07-15 00:00:00 84 mm[Hg] [facility] BP Systolic 2023-07-15 00:00:00 126 mm[Hg] [facility] Height 2023-07-15 00:00:00 65 [in_i] [facility] BP Diastolic 2020-06-13 00:00:00 93 mm[Hg] [facility] Height 2020-06-13 00:00:00 65 [in_i] [facility] BMI (Body Mass Index) 2020-06-13 00:00:00 37.3 kg/m2 [facility] BP Systolic 2020-06-13 00:00:00 132 mm[Hg] [facility] Body Weight 2020-06-13 00:00:00 223.9 [lb_av] [facility] BP Diastolic 2020-05-17 00:00:00 95 mm[Hg] [facility] Height 2020-05-17 00:00:00 65 [in_i] [facility] BMI (Body Mass Index) 2020-05-17 00:00:00 38.2 kg/m2 [facility] BP Systolic 2020-05-17 00:00:00 134 mm[Hg] [facility] Body Weight 2020-05-17 00:00:00 229.7 [lb_av] [facility] BP Diastolic 2019-05-25 00:00:00 92 mm[Hg] [facility] Height 2019-05-25 00:00:00 65 [in_i] [facility] BMI (Body Mass Index) 2019-05-25 00:00:00 40 kg/m2 [facility] BP Systolic 2019-05-25 00:00:00 141 mm[Hg] [facility] Body Weight 2019-05-25 00:00:00 240.3 [lb_av] [facility] BP Diastolic 2019-05-08 00:00:00 90 mm[Hg] [facility] Height 2019-05-08 00:00:00 65 [in_i] [facility] BMI (Body Mass Index) 2019-05-08 00:00:00 40.8 kg/m2 [facility] BP Systolic 2019-05-08 00:00:00 140 mm[Hg] [facility] Body Weight 2019-05-08 00:00:00 245.3 [lb_av] [facility] BP Diastolic 2018-11-22 00:00:00 89 mm[Hg] [facility] Height 2018-11-22 00:00:00 65 [in_i] [facility] BMI (Body Mass Index) 2018-11-22 00:00:00 40.6 kg/m2 [facility] BP Systolic 2018-11-22 00:00:00 133 mm[Hg] [facility] Body Weight 2018-11-22 00:00:00 244 [lb_av] [facility] Procedures Procedure Date / Time Performed Performing Clinicia n Source PHYSICIAN ORDERS 2023-03-01 05:01:00 Doctor Unas signed, Odin [facility] EXTERNAL PROVIDER RECORDS 2023-01-18 05:01:00 Doctor Unassigned, Odin [facility] ASSIGNMENT OF BENEFITS 2023-01-08 19:57:27 Docto r Unassigned, Odin [facility] US, pelvis 2019-05-25 00:00:00 [facility] Caes[facility] Section 2016-01-06 00:00:00 [facility] Plan of Care Planned Activity Planned Date Details Comments Source Diagnostic Test Pending 2020-06-13 00:00:00 wet mount, vaginal [code = wet mount, vaginal] [facility] Diagnostic Test Pending 2020-06-13 00:00:00 urinalysis, dipstick [code = urinalysis, dipstick] [facility] Diagnostic Test Pending 2020-06-13 00:00:00 pap, LB + reflex to HR HPV if ASC-U [code = pap, LB + reflex to HR HPV if ASC-U] [facility] Diagnostic Test Pending 2020-06-13 00:00:00 culture, urine [code = culture, urine] [facility] Instructions [facility] Encounters Start Date/Time End Date/Time Encounter Type Admission Type Attending [facility] Care Facility Care Department Encounter ID Source 2024-01-21 09:30:00 Inpatient VIRAJ DOMINGO [facility] [id number] [facility] 2024-01-14 15:30:00 Inpatient VIRAJ DOMINGO [facility] [id number] [facility] 2024-02-25 15:58:00 2024-02-25 15:58:00 Outpatient VIRAJ DOMINGO [facility] [id number] [facility] 2023-11-23 09:09:30 2023-11-23 23:59:00 Outpatient VIVEK VINCENT [facility] [id number] [facility] 2023-11-23 09:09:30 2023-11-23 23:59:00 Hospital Vivek Schreiber [facility] OFF[facility] [id number] [facility] 2023-11-04 12:43:00 2023-11-04 12:43:00 Outpatient ROSSANA BOWEN [facility] [id number] [facility] 2023-09-07 00:00:00 2023-09-07 00:00:00 Outpatient Danna_M [facility] [id number] [facility] 2023-07-15 00:00:00 2023-07-15 00:00:00 Outpatient Danna_M [facility] [id number] [facility] 2023-07-15 00:00:00 2023-07-15 00:00:00 Asuncion Clay, INSIDE SALES 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 [facility] [id number] [facility] 2023-07-13 09:30:00 2023-07-13 09:30:00 Outpatient VIVEK VINCENT [facility] [id number] [facility] 2023-03-01 00:00:00 2023-03-01 00:00:00 Orders Only Doctor Unassigned, Odin [facility] [id number] [facility] 2023-01-18 00:00:00 2023-01-18 00:00:00 Orders Only Doctor Unassigned, Odin [facility] [id number] [facility] 2023-01-08 14:15:00 2023-01-08 15:39:22 Outpatient AMARILYS CALDERÓN NATHAN [facility] [id number] [facility] 2023-01-08 00:00:00 2023-01-08 00:00:00 Orders Only Doctor Unassigned, Odin [facility] [id number] [facility] 2023-01-04 07:35:00 2023-01-05 13:12:00 Inpatient ER CARRI DANIEL [facility] [id number] [facility] 2023-01-03 21:20:00 2023-01-03 18:26:00 Inpatient ER Carri Daniel [facility] [id number] [facility] 2022-06-10 00:00:00 2022-06-10 00:00:00 Outpatient AMBREEN_KATERINA LOVE MNANNA [facility] [id number] [facility] 2020-09-25 02:26:00 2020-09-25 02:26:00 Outpatient G_Pappas [facility] [id number] [facility] 2020-06-14 12:20:00 2020-06-14 12:20:00 Outpatient G_Pappas [facility] [id number] [facility] 2020-06-13 16:29:00 2020-06-13 16:29:00 Outpatient KIRBY BURGESS [facility] [id number] [facility] 2020-06-13 00:00:00 2020-06-13 00:00:00 Kirby Tolliver MD: [address] [address] , Ph. [phone] [facility] [id number] [facility] 2020-06-01 12:14:00 2020-06-01 12:14:00 Outpatient G_Pappas [facility] [id number] [facility] 2020-05-19 10:04:00 2020-05-19 10:04:00 Outpatient G_Pappas [facility] [id number] [facility] 2020-05-17 00:00:00 2020-05-17 00:00:00 Kirby Tolliver MD: [address], [place] [address] , Ph. [phone] [facility] [id number] [facility] 2019-06-10 11:06:00 2019-06-10 11:06:00 Outpatient G_Pappas [facility] [id number] [facility] 2019-05-25 00:00:00 2019-05-25 00:00:00 Kirby Tolliver MD: [address], [address], [place] [address] , Ph. [phone] [facility] [id number] [facility] 2019-05-08 11:36:00 2019-05-08 11:36:00 Outpatient MACKENZIE SLATER [facility] [id number] [facility] 2019-05-08 00:00:2019-05-08 00:00:00 Mackenzieshawn Davis [place], WHNP: [address], [address], [place] [address] , Ph. [phone] [facility] [id number] [facility] 2018-11-22 16:10:00 2018-11-22 16:10:00 Outpatient MACKENZIE SLATER [facility] [id number] [facility] 2018-11-22 00:00:00 2018-11-22 00:00:00 Mackenzie Susan Ciro, WHNP: [address] [place] [address] , Ph. [phone] [facility] [id number] [facility] 2016-03-11 07:13:00 2016-03-11 07:13:00 Outpatient KIRBY BURGESS [facility] [id number] [facility] 2016-01-05 18:00:00 2016-01-08 09:30:00 Inpatient KIRBY BURGESS [facility] [id number] [facility] 2015-12-27 11:21:00 2015-12-27 11:21:00 Outpatient KIRBY BURGESS [facility] [id number] [facility] 2015-12-06 16:33:00 2015-12-06 18:37:00 Emergency ER SHAREEKIRBY BALL [facility] [id number] [facility] 2015-11-22 14:56:00 2015-11-22 14:56:00 Outpatient KIRBY BURGESS [facility] [id number] [facility] 2015-10-28 12:56:00 2015-10-28 12:56:00 Outpatient KIRBY ALVAREZ [facility] [id number] [facility] 2015-10-21 08:04:00 2015-10-21 08:04:00 Outpatient KIRBY ALVAREZ [facility] [id number] [facility] 2015-10-14 08:03:00 2015-10-14 08:03:00 Outpatient KIRBY ALVAREZ [facility] [id number] [facility] 2015-08-29 02:39:00 2015-08-29 05:36:00 Emergency ER JOANNE HARPER [facility] [id number] [facility] 2015-08-28 16:07:00 2015-08-28 16:07:00 Outpatient KIRBY ALVAREZ [facility] [id number] [facility] 2015-08-07 14:17:00 2015-08-07 14:17:00 Outpatient KIRBY ALVAREZ [facility] [id number] [facility] 2015-07-01 16:23:00 2015-07-01 16:23:00 Outpatient KIRBY ALVAREZ [facility] [id number] [facility] 2015-06-24 15:33:00 2015-06-24 15:33:00 Outpatient KIRBY ALVAREZ [facility] [id number] [facility] 2015-05-31 10:30:00 2015-05-31 10:30:00 Outpatient KIRBY ALVAREZ [facility] [id number] [facility] 2015-05-20 12:56:00 2015-05-20 16:25:00 Emergency ER MEIR KAYE [facility] [id number] [facility] 2014-12-09 13:52:00 2014-12-09 17:00:00 Emergency ER LEEROY MAI [facility] [id number] [facility] 2014-08-22 17:49:00 2014-08-27 12:26:00 Inpatient ER HARSHA ENGEL [facility] [id number] [facility] 2014-07-14 03:14:00 2014-07-15 17:50:00 Inpatient ER KIRBY GARZA [facility] [id number] [facility] 2014-01-10 10:20:00 2014-01-10 10:20:00 Outpatient DAYA RICE [facility] [id number] [facility] 2011-05-18 20:59:00 2011-05-19 03:57:00 Emergency ER DOMENICLEONIDES OZIEL [facility] [id number] [facility] 2010-10-07 22:17:00 2010-10-08 00:12:00 Emergency ER ELIASOZIEL [facility] [id number] [facility] 2010-10-03 16:00:00 2010-10-03 19:22:00 Emergency ER JORGE A GARCIA [facility] [id number] [facility] Results Test Description Test Time Test Comments Results Result Co mments Source [facility], [id number] 08:55:00* Test Item Value Reference Range Interpretation Comme nts Test (test code = Test) negative [facility], [id number] 10:59:00* Test Item Value Reference Range Interpretation Comme nts Test (test code = Test) negative [facility], [id number] 10:59:00* Test Item Value Reference Range Interpretation Comme nts Test (test code = Test) negative [facility] macro (dipstick) panel - [id number] 10:44:00* Test Item Value Reference Range Interpretation Comme nts Leukocytes (test code = Leukocytes) Negative Nitrite (test code = Nitrite) negative Urobilinogen (test code = Urobilinogen) .2 Protein (test code = Protein) Negative pH (test code = pH) 7.0 Blood (test code = Blood) Non-Hemolyzed: Trace Specific [place] (test code = Specific [place]) 1.025 Ketone (test code = Ketone) Negative Bilirubin (test code = Bilirubin) Negative Glucose (test code = Glucose) Negative Appearance (test code = Appearance) Clear Color (test code = Color) Yellow [facility] - [id number] 10:44:00* Test Item Value Reference Range Interpretation Comme nts Leukocytes (test code = Leukocytes) Negative Nitrite (test code = Nitrite) negative Urobilinogen (test code = Urobilinogen) .2 Protein (test code = Protein) Negative pH (test code = pH) 7.0 Blood (test code = Blood) Non-Hemolyzed: Trace Specific [place] (test code = Specific [place]) 1.025 Ketone (test code = Ketone) Negative Bilirubin (test code = Bilirubin) Negative Glucose (test code = Glucose) Negative Appearance (test code = Appearance) Clear Color (test code = Color) Yellow [facility] - Serum or Plasma 2019-05-08 09:43:00* Test Item Value Reference Range Interpretation Comme nts glucose (test code = glucose) 106 mg/dL 74-106 Urea nitrogen [Mass/volume] in Serum or Plasma (test code = 3094-0) 11 mg/dL 6-20 Osmolality of Serum or Plasm a (test code = 2692-2) 274 280-300 L creatinine (test code = creatinine) 0.6 mg/dL 0.50-0.90 glomerular filtration rate ( test code = glomerular filtration rate) >60.00 Urea nitrogen/Creatinine [Ma ss Ratio] in Serum or Plasma (test code = 3097-3) 18.3 12-20 sodium level (test code = so dium level) 137 mmol/L 135-145 Potassium [Moles/volume] in Body fluid (test code = 2821-7) 4.5 mmol/L 3.5-5.2 chloride level (test code = chloride level) 97 mmol/L 98-108 L CO2 (test code = CO2) 28 mmol/L 21-32 anion gap (test code = anion gap) 16.5 mEq/L 12-20 calcium level (test code = c alcium level) 9.5 mg/dL 8.6-10.0 total protein (test code = t otal protein) 7.4 g/dL 6.6-8.7 albumin (test code = albumin) 4.1 g/dL 3.5-5.2 globulin (test code = globulin) 3.3 gm/dL A/G ratio (test code = A/G ratio) 1.2 >1.0 bilirubin,total (test code = bilirubin,total) <0.3 0.0-1.2 AST/SGOT (test code = AST/SGOT) 23 U/L 15-32 Alanine aminotransferase [Enzymatic activity/volume] in Serum or Plasma (test code = 1742-6) 28 U/L 0-33 Alkaline phosphatase [Enzyma tic activity/volume] in Serum or Plasma (test code = 6768-6) 72 U/L 35-105 [facility] [Units/volume] in Serum or [id number] 09:43:00* Test Item Value Reference Range Interpretation Comme nts Thyrotropin [Units/volume] i n Serum or Plasma (test code = 3016-3) 1.74 uIU/mL 0.36-3.74 [facility]horiogonadotropin.beta subunit [Units/volume] in Serum or [id number] 09:43:00* Test Item Value Reference Range Interpretation Comme nts HCG quantitative (test code = HCG quantitative) <0.1 0-5 [facility] W Auto Differential panel - [id number] 09:43:00 * Test Item Value Reference Range Interpretation Comme nts white blood count (test code = white blood count) 11.8 K/uL 4.0-11.5 H red blood count (test code = red blood count) 5.34 M/uL 3.80-5.20 H hemoglobin (test code = hemoglobin) 14.6 g/dL 10.5-15.7 hematocrit (test code = hematocrit) 47.5 % 34.0-50.0 Erythrocyte mean corpuscular volume [Entitic volume] (test code = 08258-5) 89.0 fL 86-100 Erythrocyte mean corpuscular hemoglobin [Entitic mass] (test code = 96367-2) 27.3 pg 26.2-33.4 mean corpuscular HGB conc (t est code = mean corpuscular HGB conc) 30.7 g/dL 30-34 red cell distribution width (test code = red cell distribution width) 13.4 % 12.0-15.5 platelet count (test code = platelet count) 339 K/uL 165-450 mean platelet volume (test c ode = mean platelet volume) 11.2 fL 9.4-12.6 Neutrophils.segmented/100 leukocytes in Blood (test code = 78660-7) 71.2 % 44.4-80.1 Ig% (test code = Ig%) 0.5 % 0.0-0.4 H lymphocyte% (test code = lymphocyte%) 21.9 % 10.0-50.0 Monocytes/100 leukocytes in Blood by Automated count (test code = 5905-5) 4.8 % 3.6-12.0 Eosinophils/100 leukocytes i n Blood by Automated count (test code = 713-8) 1.0 % 0.0-5.4 Basophils/100 leukocytes in Unspecified specimen (test code = 09586-6) 0.6 % 0.1-1.2 absolute neutrophil count (t est code = absolute neutrophil count) 8.40 K/uL 1.56-6.13 H Ig# (test code = Ig#) 0.1 K/uL 0.0-0.03 H Lymphocytes [#/volume] in Unspecified specimen by Automated count (test code = 43185-2) 2.6 K/uL 1.18-3.74 mono # (test code = mono #) 0.57 K/uL 0.24-0.86 eos # (test code = eos #) 0.12 K/uL 0.04-0.36 basophil # (test code = baso delmy #) 0.07 K/uL 0.01-0.08 NRBC% (test code = NRBC%) 0 /100 WBC 0-0.2 NRBC# (test code = NRBC#) 0 K/uL [facility], [id number] 09:43:00 NeutrophilsBandLymphocyteMonocyteMetamyelocytePlatelet EstimateToxic VacuolationGiant PlateletsMatagorda Medical GroupHemoglobin A1c [Mass/volume] in [id number] 09:43:00* Test Item Value Reference Range Interpretation Comme nts Hemoglobin A1c in Blood ([facility] t code = 49624-2) 5.8 % 4.0-6.0 [facility] HospitalComprehensive metabolic 2000 panel - Serum or Plasma 2019-05-08 09:43:00* Test Item Value Reference Range Interpretation Comme nts glucose (test code = glucose) 106 mg/dL 74-106 Urea nitrogen [Mass/volume] in Serum or Plasma (test code = 3094-0) 11 mg/dL 6-20 Osmolality of Serum or Plasm a (test code = 2692-2) 274 280-300 L creatinine (test code = creatinine) 0.6 mg/dL 0.50-0.90 glomerular filtration rate ( test code = glomerular filtration rate) >60.00 Urea nitrogen/Creatinine [Ma ss Ratio] in Serum or Plasma (test code = 3097-3) 18.3 12-20 sodium level (test code = so dium level) 137 mmol/L 135-145 Potassium [Moles/volume] in Body fluid (test code = 2821-7) 4.5 mmol/L 3.5-5.2 chloride level (test code = chloride level) 97 mmol/L 98-108 L CO2 (test code = CO2) 28 mmol/L 21-32 anion gap (test code = anion gap) 16.5 mEq/L 12-20 calcium level (test code = c alcium level) 9.5 mg/dL 8.6-10.0 total protein (test code = t otal protein) 7.4 g/dL 6.6-8.7 albumin (test code = albumin) 4.1 g/dL 3.5-5.2 globulin (test code = globulin) 3.3 gm/dL A/G ratio (test code = A/G ratio) 1.2 >1.0 bilirubin,total (test code = bilirubin,total) <0.3 0.0-1.2 AST/SGOT (test code = AST/SGOT) 23 U/L 15-32 Alanine aminotransferase [Enzymatic activity/volume] in Serum or Plasma (test code = 1742-6) 28 U/L 0-33 Alkaline phosphatase [Enzyma tic activity/volume] in Serum or Plasma (test code = 6768-6) 72 U/L 35-105 [facility] HospitalThyrotropin [Units/volume] in Serum or [id number] 09:43:00* Test Item Value Reference Range Interpretation Comme nts Thyrotropin [Units/volume] i n Serum or Plasma (test code = 3016-3) 1.74 uIU/mL 0.36-3.74 [facility] HospitalChoriogonadotropin.beta subunit [Units/volume] in Serum or [id number] 09:43:00* Test Item Value Reference Range Interpretation Comme nts HCG quantitative (test code = HCG quantitative) <0.1 0-5 [facility] HospitalChlamydia trachomatis+Neisseria gonorrhoeae DNA [Presence] in Cervix by Probe and target amplification [id number] 09:43:00 ResultsMataLackey Memorial HospitalCB W Auto Differential panel - [id number] 09:43:00* Test Item Value Reference Range Interpretation Comme nts white blood count (test code = white blood count) 11.8 K/uL 4.0-11.5 H red blood count (test code = red blood count) 5.34 M/uL 3.80-5.20 H hemoglobin (test code = hemoglobin) 14.6 g/dL 10.5-15.7 hematocrit (test code = hematocrit) 47.5 % 34.0-50.0 Erythrocyte mean corpuscular volume [Entitic volume] (test code = 16683-4) 89.0 fL 86-100 Erythrocyte mean corpuscular hemoglobin [Entitic mass] (test code = 24547-0) 27.3 pg 26.2-33.4 mean corpuscular HGB conc (t est code = mean corpuscular HGB conc) 30.7 g/dL 30-34 red cell distribution width (test code = red cell distribution width) 13.4 % 12.0-15.5 platelet count (test code = platelet count) 339 K/uL 165-450 mean platelet volume (test c ode = mean platelet volume) 11.2 fL 9.4-12.6 Neutrophils.segmented/100 leukocytes in Blood (test code = 86530-0) 71.2 % 44.4-80.1 Ig% (test code = Ig%) 0.5 % 0.0-0.4 H lymphocyte% (test code = lymphocyte%) 21.9 % 10.0-50.0 Monocytes/100 leukocytes in Blood by Automated count (test code = 5905-5) 4.8 % 3.6-12.0 Eosinophils/100 leukocytes i n Blood by Automated count (test code = 713-8) 1.0 % 0.0-5.4 Basophils/100 leukocytes in Unspecified specimen (test code = 31216-7) 0.6 % 0.1-1.2 absolute neutrophil count (t est code = absolute neutrophil count) 8.40 K/uL 1.56-6.13 H Ig# (test code = Ig#) 0.1 K/uL 0.0-0.03 H Lymphocytes [#/volume] in Unspecified specimen by Automated count (test code = 60308-6) 2.6 K/uL 1.18-3.74 mono # (test code = mono #) 0.57 K/uL 0.24-0.86 eos # (test code = eos #) 0.12 K/uL 0.04-0.36 basophil # (test code = baso delmy #) 0.07 K/uL 0.01-0.08 NRBC% (test code = NRBC%) 0 /100 WBC 0-0.2 NRBC# (test code = NRBC#) 0 K/uL [facility], [id number] 09:43:00 NeutrophilsBandLymphocyteMonocyteMetamyelocytePlatelet EstimateToxic VacuolationGiant PlateletsMaNeshoba County General HospitalHemoglobin A1c [Mass/volume] in [id number] 09:43:00* Test Item Value Reference Range Interpretation Comme nts Hemoglobin A1c in Blood (jose t code = 04618-2) 5.8 % 4.0-6.0 [facility] HospitalMicroscopic observation [Identifier] in Cervix by Cyto stain.thin [id number] 00:00:00ResultsMaNeshoba County General HospitalUrinalysis macro (dipstick) panel - [id number] 15:20:22* Test Item Value Reference Range Interpretation Comme nts Leukocytes (test code = Leukocytes) Trace Nitrite (test code = Nitrite) negative Urobilinogen (test code = Urobilinogen) .2 Protein (test code = Protein) 30 pH (test code = pH) 6.0 Blood (test code = Blood) Moderate Specific [place] (test code = Specific [place]) 1.030 Ketone (test code = Ketone) Small Bilirubin (test code = Bilirubin) Negative Glucose (test code = Glucose) Negative Appearance (test code = Appearance) Clear Color (test code = Color) Yellow [facility] Hospitalpregnancy test, [id number] 15:19:02* Test Item Value Reference Range Interpretation Comme nts Test (test code = Test) negative [facility]
[2024-05-17 12:41] LABS: SARS-CoV-2 Antigen CONTROL BLUE LINE VIS/BG OK; SARS-CoV-2 Antigen Rapid Res Negative (Negative)
[2024-05-17 12:48] LABS: Specific Gravity 1.022 (1.005-1.030); Sqamous Epithelial <5 /HPF (None Seen); Urine Bacteria >50 /HPF (<20); Urine Bilirubin NEGATIVE (Negative); Urine Blood Trace (Negative); Urine Clarity Extremely Turbid (Clear); Urine Color Yellow (Yellow); Urine Culture Reflex Order REFLEXED; Urine Glucose NEGATIVE (Negative); Urine Ketones NEGATIVE (Negative); Urine Microscopic Reflex YN ORDER UMIC; Urine Mucus 1+ /HPF (None Seen); Urine Nitrite 2+ (Negative); Urine Protein TRACE (Negative); Urine Urobilinogen Normal (Normal); Urine WBC >50 /HPF (<5)
--- NOTE | 2024-05-17 14:32 | ER ---
Nurse's Notes [facility] Name: Kiesha Joiner Age: 33 yrs Sex: Female : 1990 Arrival Date: 05/17/2024 Time: 11:15 Bed 27 Private MD: Diagnosis: UTI/ Urinary tract infection, site not specified Presentation: 05/17 11:59 Chief complaint: Patient states: Pain with urination, headache, nausea, abdominal jl7 pain/cramps since yesterday. Coronavirus screen: fatigue, headache, Client presents with at least one sign or symptom that may indicate coronavirus-19. Ebola Screen: No symptoms or risks identified at this time. Initial Sepsis Screen: Does the patient meet any 2 criteria? No. Patient's initial sepsis screen is negative. Does the patient have a suspected source of infection? No. Patient's initial sepsis screen is negative. Risk Assessment: Do you want to hurt yourself or someone else? Patient reports no desire to harm self or others. Onset of symptoms was May 16, 2024. 11:59 Method Of Arrival: Ambulatory [facility] 11:59 Acuity: OKNSTANTIN 3 jl7 Triage Assessment: 12:01 General: Appears in no apparent distress. uncomfortable, Behavior is calm, cooperative, jl7 appropriate for age. Pain: Complains of pain in abdomen \T\ [place]. Neuro: No deficits noted. Cardiovascular: No deficits noted. Respiratory: No deficits noted. GI: Reports nausea. : Reports pain with urination. Derm: Skin is pink, warm \T\ dry. 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 - Infectious Disease History:: Denies. - Social history:: Smoking status: Patient denies any tobacco usage or history of. - Family history:: not pertinent. - Hospitalizations: : No recent hospitalization is reported. Screenin:00 [facility] ED Fall Risk Assessment (Adult) History of falling in the last 3 months, jl7 including since admission No falls in past 3 months (0 pts) Confusion or Disorientation No (0 pts) Intoxicated or Sedated No (0 pts) Impaired Gait No (0 pts) Mobility Assist Device Used No (0 pt) Altered Elimination No (0 pt) Score/Fall Risk Level 0 - 2 = Low Risk Oriented to surroundings, Maintained a safe environment. Abuse screen: Denies threats or abuse. Denies injuries from another. Nutritional screening: No deficits noted. Tuberculosis screening: No symptoms or risk factors identified. Assessment: 13:06 Reassessment: Patient appears in no apparent distress at this time. Patient and/or jb4 family updated on plan of care and expected duration. Pain level reassessed. Patient is alert, oriented x 3, equal unlabored respirations, skin warm/dry/pink. 14:00 Reassessment: Patient appears in no apparent distress at this time. No changes from [facility] previously documented assessment. Patient and/or family updated on plan of care and expected duration. Pain level reassessed. Patient is alert, oriented x 3, equal unlabored respirations, skin warm/dry/pink. Vital Signs: 11:59 BP 142 / 82; Pulse 89; Resp 17; Temp 99.2; Pulse Ox 99% ; Weight 104.33 kg; Height 5 jl7 ft. 4 in. ; Pain 7/10; 14:16 BP 118 / 87; Pulse 90; Resp 15; Temp 98.2; Pulse Ox 98% ; jl7 11:59 Body Mass Index 39.48 (104.33 kg, 162.56 cm) [facility] 11:59 Pain Scale: Adult [facility] ED Course: 11:17 Patient arrived in ED. im 11:59 Kojo Doyle MD is Attending Physician. rn 12:01 Triage completed. jl7 12:01 Arm band placed on right wrist. Patient placed in waiting room, Patient notified of 7 wait time. 12:05 COVID swab sent to lab. Flu and/or RSV swab sent to lab. Strep swab sent to lab. jl7 12:27 Urine collected: clean catch specimen, clear. jl7 12:32 Urinalysis w/ reflexes Sent. jb4 12:36 Patient placed in an exam room, on a stretcher. jl7 14:00 Patient has correct armband on for positive identification. Bed in low position. Call [facility] light in reach. Side rails up X 1. 14:00 No provider procedures requiring assistance completed. Patient did not have IV access jl7 during this emergency room visit. 14:11 Santana Wise, RN is Primary Nurse. jl7 14:44 Provided Education on: discharge. jl7 Administered Medications: 14:43 Drug: Ciprofloxacin PO 500 mg PO once Route: PO; jl7 14:43 Follow up: Response: Medication administered at discharge. jl7 14:43 Drug: Ondansetron PO 4 mg PO once Route: PO; jl7 14:43 Follow up: Response: Medication administered at discharge. jl7 Medication: 14:00 VIS not applicable for this client. jl7 Outcome: 14:00 Discharged to home ambulatory, jl7 14:00 Condition: stable 14:00 Discharge instructions given to patient, family, Instructed on discharge instructions, follow up and referral plans. medication usage, Demonstrated understanding of instructions, follow-up care, medications, Prescriptions given X 2, 14:32 Discharge ordered by . rn 14:44 Patient left the ED. jl7 Signatures: Kojo Doyle MD MD rn Bryson, James RN RN jb4 Santana Wise, RN RN jl7 Delia Orr Corrections: (The following items were deleted from the chart) 12:01 12:01 Allergies: No Known Allergies; 7 jl7
--- NOTE | 2024-05-17 14:32 | EDPHYS ---
Physician Documentation [facility] Name: Kiesha Joiner Age: 33 yrs Sex: Female : 1990 Arrival Date: 05/17/2024 Time: 11:15 Bed 27 Private MD: ED Physician Kojo Doyle HPI: 05/17 12:58 This 33 yrs old Female presents to ER via Ambulatory with complaints of rn Nausea, Pain With Urination, Headache, Cramps. 12:58 The patient presents to the emergency department with nausea. Onset: The rn symptoms/episode began/occurred 2 day(s) ago. Possible causes: unknown. The symptoms are aggravated by nothing. The symptoms are alleviated by nothing. Severity of symptoms: At their worst the symptoms were mild in the emergency department the symptoms are unchanged. The patient has not experienced similar symptoms in the past. Patient reports subjective fever, chills, headache, malaise, nausea and dysuria. Patient feels like she might have a urine infection. Also reports exposure to COVID recently.. 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 - Infectious Disease History:: Denies. - Social history:: Smoking status: Patient denies any tobacco usage or history of. - Family history:: not pertinent. - Hospitalizations: : No recent hospitalization is reported. ROS: 12:58 Constitutional: Negative for fever, chills, and weight loss, ENT: Positive for nasal rn drainage and sore throat Neck: Negative for injury, pain, and swelling, Cardiovascular: Negative for chest pain, palpitations, and edema, Respiratory: Negative for shortness of breath, cough, wheezing, and pleuritic chest pain, Abdomen/GI: Positive for nausea MS/Extremity: Negative for injury and deformity, Skin: Negative for injury, rash, and discoloration, Neuro: Positive for headache and generalized weakness/malaise Exam: 12:58 Constitutional: This is a well developed, well nourished patient who is awake, alert, rn and in no acute distress. Head/Face: Normocephalic, atraumatic. ENT: Moist mucous membranes, no stridor Cardiovascular: Regular rate and rhythm. No pulse deficits. Respiratory: No increased work of breathing, no retractions or nasal flaring. Abdomen/GI: Soft, nontender MS/ Extremity: Pulses equal, no cyanosis. Neurovascular intact. Full, normal range of motion. Equal circumference. Neuro: Awake and alert, GCS 15, oriented to person, place, time, and situation. Cranial nerves II-XII grossly intact. Motor strength 5/5 in all extremities. Sensory grossly intact. Cerebellar exam normal. Normal gait. Vital Signs: 11:59 BP 142 / 82; Pulse 89; Resp 17; Temp 99.2; Pulse Ox 99% ; Weight 104.33 kg; Height 5 jl7 ft. 4 in. ; Pain 7/10; 14:16 BP 118 / 87; Pulse 90; Resp 15; Temp 98.2; Pulse Ox 98% ; jl7 11:59 Body Mass Index 39.48 (104.33 kg, 162.56 cm) [facility] 11:59 Pain Scale: Adult jl7 MDM: 11:59 Patient medically screened. rn 14:31 Differential diagnosis: UTI, COVID. Data reviewed: vital signs, nurses notes, lab test rn result(s), and as a result, I will discharge patient. Counseling: I had a detailed discussion with the patient and/or guardian regarding the historical points, exam findings, and any diagnostic results supporting the discharge/admit diagnosis, lab results, the need for outpatient follow up, to return to the emergency department if symptoms worsen or persist or if there are any questions or concerns that arise at home. Response to treatment: the patient's symptoms have mildly improved after treatment. Special discussion: I discussed with the patient/guardian in detail that at this point there is no indication for admission to the hospital. It is understood, however, that if the symptoms persist or worsen the patient needs to return immediately for re-evaluation. 05/17 12:03 Order name: SARS RAPID; Complete Time: 12:58 rn 05/17 12:03 Order name: Flu rn 05/17 12:03 Order name: Strep rn 05/17 12:03 Order name: Urinalysis w/ reflexes; Complete Time: 12:58 rn 05/17 12:51 Order name: Urine Culture EDMS 05/17 12:51 Order name: Throat Culture EDMS Administered Medications: 14:43 Drug: Ciprofloxacin PO 500 mg PO once Route: PO; jl7 14:43 Follow up: Response: Medication administered at discharge. jl7 14:43 Drug: Ondansetron PO 4 mg PO once Route: PO; jl7 14:43 Follow up: Response: Medication administered at discharge. 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 - Prescription Opioid Use rn - Patient Portal Instructions rn - Leadership Thank You Letter rn - Work release form jl7 Prescriptions: - ondansetron 4 mg Oral Tablet,disintegrating - take 1 tablet ORAL route every 8 hours As needed; 15 tablet; Refills: 0, rn Product Selection Permitted - Cipro 500 mg Oral Tablet - take 1 tablet ORAL route every 12 hours for 7 days; 14 tablet; Refills: 0, rn Product Selection Permitted Signatures: Dispatcher [employer] Kojo Medeiros MD MD rn Leal, Jahala, RN RN jl7 Corrections: (The following items were deleted from the chart) 12:01 12:01 Allergies: No Known Allergies; jl7 jl7
[2024-05-17] MEDS ORDERED: ONDANSETRON 4 MG (ODT) TAB ONE (14:34)
[2024-05-17] MEDS ORDERED: CIPROFLOXACIN HCL 500 MG TAB ONE (14:34)
[2024-05-17 16:26] VITALS: BP 118/87; TEMP 98.2; O2SAT 98
== END 2024-05-17 14:44 | disposition home or self-care (01) ==
LOC: ER 11:15
DX: N39.0 Urinary tract infection, site not specified (principal); Z11.52 Encounter for screening for COVID-19
CPT/HCPCS: 87070; 87088; 81001; 87086; 36415; 87081; 87077; 87186; 87804 ×2; 99284; 87811; Q0162

== ENCOUNTER 2024-11-09 12:20 | Emergency (ER) | payer BC, OTHER ==
--- OUTSIDE RECORDS SUMMARY | 2024-11-09 12:24 | XMS REPORT | Continuity of Care Document ---
Author Name Unknown Address [address] [facility] [address] [facility] Address [address] [facility] [address] 1 [address] [place] [address] Care Team Providers Care Shipping And Receiving Associate Name Role Phone KAYLA LUNDBERG Primary Care Physician UnavailVIRAJ Jesus Attending Clinician Unavailable AMERICA WISE Attending Clinician UnavailFILOMENA Jade Attending Clinician Unavailab AMARILYS Myles Attending Clinician Unavailable AMARILYS ZHONG Attending Clinician Unavailable VIVEK PEREZ Attending Clinician Unavailable Vivek Perez MD Attending Clinician [phone] ROSSANA NICHOLAS Attending Clinician Unavailable Hawmyah_Rosalie Attending Clinician Unavailable Doctor Unassigned, [place] Attending Clinician U navailable CARRI DANIEL Attending Clinician Unavailable G_Papjerald Attending Clinician Unavailable KIRBY TOLLIVER Attending Clinician UnavailMACKENZIE Farias Attending Clinician Unavailable KIRBY GARZA Attending Clinician UnavailJOANNE mendoza BA Attending Clinician Unavailable MEIR KAYE Attending Clinician Unavailable LEEROY MAI Attending Clinician Unavailable HARSHA ENGEL Attending Clinician Unavailable DAYA RAMIREZ Attending Clinician Unavailable OZIEL GRIFFIN Attending Clinician Unavailab JORGE A [place] Attending Clinician Unavailable AMARILYS ZHONG Admitting Clinician Unavailable Hawmyah_Rosalie Admitting Clinician Unavailable CARRI DANIEL Admitting Clinician Unavailable G_Pappas Admitting Clinician Unavailable KIRBY TOLLIVER Admitting Clinician UnavailHARSHA Francisco Admitting Clinician Unavailable KIRBY GARZA Admitting Clinician Unavailabl e Payers Payer Name Policy Type Policy Number Effective Date Expirati on Date Source [place] [id number] 2019 00:[place]:00 [place] [place] [id number] 2023 00[place] [id number] 2019 00:00:00 [place]MEDICAID[place] [id number] [facility] (MEDICAID HMO) [id number] Problems Condition Name Condition Details Condition Category [...] Contracept ion Problem Active 05-08 00:00: 00 [facility] Condyloma acuminata of vulva Condyloma Acuminata of Vulva Problem [facility] Obesity Obesity Problem Active [facility] Anxiety Anxiety Problem Active [facility] Hypertensi ve disorder Hypertensi ve Disorder Problem Active [facility] Allergies, Adverse Reactions, Alerts Allergy Name Allergy Type Status Severity Reaction(s) Onset Date Inactive Date Treating Clinician Comments Source DULOXETI NE DRUG INGREDI Active Hallucinates 01-08 00:00: 00 [facility] Duloxeti ne Propensi ty to adverse reaction s Active Hallucinatio ns 01-08 00:00: 00 [facility] NO KNOWN ALLERGIE S Drug Class Active [facility] Cymbalta Allergy to substanc e Active Severe Other [facility] Tizanidi ne Allergy to substanc e Active Severe Other [facility] Social History Social Habit Start Date Stop Date Quantity Comments Source Sexual orientation [facility] Exposure to SARS-CoV-2 (event) 2022-12-29 00:00:00 2023-01-08 13:56:00 Not sure [facility] Tobacco use and exposure 2023-01-08 00:00:00 2023-01-08 00:00:00 Smokeless tobacco non-user [facility] Alcohol intake 2023-01-08 00:00:00 2023-01-08 00:00:00 Current drinker of alcohol (finding) [facility] Alcohol Comment 2023-01-08 00:00:00 2023-01-08 00:00:00 social [facility] History of Social function 2023-01-08 00:00:00 2023-01-08 00:00:00 [facility] Sex Assigned At 1990 00:00:00 1990 00:00:00 [facility] Smoking Status Start Date Stop Date Source Former Smoker [facility] Tobacco smoking consumption unknown [facility] Never smoked tobacco [facility] Medications Ordered Medication Name Filled Medication Name Start Date Stop Date Current Medication? Ordering Clinician Indication Dosage Frequency Signature (SIG) Comments Components Source gabapentin 100 mg capsule 01-08 00:00: 00 Yes [id number] 100mg Take 1 capsule by mouth in the morning and 1 capsule at noon and 1 capsule in the evening. Take 1 capsule at bedtime for the first week, then can increase to three times per day as tolerated. [facility] acetaminoph en 300 mg-codeine 30 mg tablet acetaminoph en 300 mg-codeine 30 mg tablet No acetaminop hen 300 mg-codeine 30 mg tablet [facility] Bactrim DS 800 mg-160 mg tablet Take 1 tablet twice a day by oral route for 3 days. Bactrim DS 800 mg-160 mg tablet Take 1 tablet twice a day by oral route for 3 days. No 1 BID Bactrim DS 800 mg-160 mg tablet Take 1 tablet twice a day by oral route for 3 days. [facility] citalopram 20 mg tablet Take 1 tablet every day by oral route. citalopram 20 mg tablet Take 1 tablet every day by oral route. No 1 Q1D citalopram 20 mg tablet Take 1 tablet every day by oral route. [facility] clonazepam 1 mg tablet clonazepam 1 mg tablet No clonazepam 1 mg tablet [facility] Daysee 0.15 mg-30 mcg (84)/10 mcg(7) tablets,3 month dose pack Take 1 tablet every day by oral route. Daysee 0.15 mg-30 mcg (84)/10 mcg(7) tablets,3 month dose pack Take 1 tablet every day by oral route. No Daysee 0.15 mg-30 mcg (84)/10 mcg(7) tablets,3 month dose pack Take 1 tablet every day by oral route. [facility] meloxicam 15 mg tablet meloxicam 15 mg tablet No meloxicam 15 mg tablet [facility] phentermine phentermine No ph entermin e [facility] tizanidine 4 mg tablet tizanidine 4 mg tablet No tizanidine 4 mg tablet [facility] clonazepam 1 mg tablet TAKE 1 TABLET BY MOUTH EVERY NIGHT AT BEDTIME NEEDED clonazepam 1 mg tablet TAKE 1 TABLET BY MOUTH EVERY NIGHT AT BEDTIME NEEDED No clonazepam 1 mg tablet TAKE 1 TABLET BY MOUTH EVERY NIGHT AT BEDTIME NEEDED [facility] cyclobenzap rine 10 mg tablet TAKE 1/2-1 TABLET BY MOUTH THREE TIMES DAILY NEEDED cyclobenzap rine 10 mg tablet TAKE 1/2-1 TABLET BY MOUTH THREE TIMES DAILY NEEDED No cyclobenza glenn 10 mg tablet TAKE 1/2-1 TABLET BY MOUTH THREE TIMES DAILY NEEDED [facility] Daysee 0.15 mg-30 mcg (84)/10 mcg(7) tablets,3 month dose pack TAKE 1 TABLET BY MOUTH EVERY DAY Daysee 0.15 mg-30 mcg (84)/10 mcg(7) tablets,3 month dose pack TAKE 1 TABLET BY MOUTH EVERY DAY No Daysee 0.15 mg-30 mcg (84)/10 mcg(7) tablets,3 month dose pack TAKE 1 TABLET BY MOUTH EVERY DAY [facility] diclofenac sodium 75 mg tablet,joseph yed release TAKE 1 TABLET BY MOUTH TWICE DAILY diclofenac sodium 75 mg tablet,joseph yed release TAKE 1 TABLET BY MOUTH TWICE DAILY No diclofenac sodium 75 mg tablet,del ayed release TAKE 1 TABLET BY MOUTH TWICE DAILY [facility] fluconazole 150 mg tablet TAKE 1 TABLET BY MOUTH NOW AND REPEAT IN 3 DAYS fluconazole 150 mg tablet TAKE 1 TABLET BY MOUTH NOW AND REPEAT IN 3 DAYS No fluconazol e 150 mg tablet TAKE 1 TABLET BY MOUTH NOW AND REPEAT IN 3 DAYS [facility] fluoxetine 20 mg capsule TAKE 1 CAPSULE BY MOUTH EVERY DAY fluoxetine 20 mg capsule TAKE 1 CAPSULE BY MOUTH EVERY DAY No fluoxetine 20 mg capsule TAKE 1 CAPSULE BY MOUTH EVERY DAY [facility] hydrocodone 10 mg-acetamin ophen 325 mg tablet TAKE 1 TABLET BY MOUTH THREE TIMES DAILY NEEDED hydrocodone 10 mg-acetamin ophen 325 mg tablet TAKE 1 TABLET BY MOUTH THREE TIMES DAILY NEEDED No hydrocodon e 10 mg-acetami nophen 325 mg tablet TAKE 1 TABLET BY MOUTH THREE TIMES DAILY NEEDED [facility] isotretinoi n 30 mg capsule TAKE ONE CAPSULE BY MOUTH TWICE DAILY WITH FOOD isotretinoi n 30 mg capsule TAKE ONE CAPSULE BY MOUTH TWICE DAILY WITH FOOD No isotretino in 30 mg capsule TAKE ONE CAPSULE BY MOUTH TWICE DAILY WITH FOOD [facility] Otezla 30 mg tablet Otezla 30 mg tablet No Otezla 30 mg tablet [facility] tobramycin 0.3 % eye drops INSTILL 1 DROP INTO AFFECTED EYE(S) BY OPHTHALMIC ROUTE EVERY 4 HOURS tobramycin 0.3 % eye drops INSTILL 1 DROP INTO AFFECTED EYE(S) BY OPHTHALMIC ROUTE EVERY 4 HOURS No tobramycin 0.3 % eye drops INSTILL 1 DROP INTO AFFECTED EYE(S) BY OPHTHALMIC ROUTE EVERY 4 HOURS [facility] Vyvanse 40 mg capsule TAKE 1 CAPSULE BY MOUTH EVERY MORNING Vyvanse 40 mg capsule TAKE 1 CAPSULE BY MOUTH EVERY MORNING No Vyvanse 40 mg capsule TAKE 1 CAPSULE BY MOUTH EVERY MORNING [facility] Vital Signs Vital Name Observation Time Observation Value Comments S ource BMI (Body Mass Index) 2023-07-15 00:00:00 39.5 kg/m2 [facility] dical [facility] Body Weight 2023-07-15 00:00:00 3800 [oz_av] [facility] BP Diastolic 2023-07-15 00:00:00 84 mm[Hg] [facility] BP Systolic 2023-07-15 00:00:00 126 mm[Hg] [facility] Height 2023-07-15 00:00:00 65 [in_i] [facility] BP Diastolic 2020-06-13 00:00:00 93 mm[Hg] [facility] Height 2020-06-13 00:00:00 65 [in_i] [facility] BMI (Body Mass Index) 2020-06-13 00:00:00 37.3 kg/m2 [facility] BP Systolic 2020-06-13 00:00:00 132 mm[Hg] [facility] Body Weight 2020-06-13 00:00:00 223.9 [lb_av] [facility] BP Diastolic 2020-05-17 00:00:00 95 mm[Hg] [facility] Height 2020-05-17 00:00:00 65 [in_i] [facility] BMI (Body Mass Index) 2020-05-17 00:00:00 38.2 kg/m2 [facility] BP Systolic 2020-05-17 00:00:00 134 mm[Hg] [facility] Body Weight 2020-05-17 00:00:00 229.7 [lb_av] [facility] BP Diastolic 2019-05-25 00:00:00 92 mm[Hg] [facility] Height 2019-05-25 00:00:00 65 [in_i] [facility] BMI (Body Mass Index) 2019-05-25 00:00:00 40 kg/m2 [facility] BP Systolic 2019-05-25 00:00:00 141 mm[Hg] [facility] Body Weight 2019-05-25 00:00:00 240.3 [lb_av] [facility] BP Diastolic 2019-05-08 00:00:00 90 mm[Hg] [facility] Height 2019-05-08 00:00:00 65 [in_i] [facility] BMI (Body Mass Index) 2019-05-08 00:00:00 40.8 kg/m2 [facility] BP Systolic 2019-05-08 00:00:00 140 mm[Hg] [facility] Body Weight 2019-05-08 00:00:00 245.3 [lb_av] [facility] BP Diastolic 2018-11-22 00:00:00 89 mm[Hg] [facility] Height 2018-11-22 00:00:00 65 [in_i] [facility] BMI (Body Mass Index) 2018-11-22 00:00:00 40.6 kg/m2 [facility] BP Systolic 2018-11-22 00:00:00 133 mm[Hg] [facility] Body Weight 2018-11-22 00:00:00 244 [lb_av] [facility] Procedures Procedure Date / Time Performed Performing Clinicia n Source PHYSICIAN ORDERS 2023-03-01 05:01:00 Doctor Unas signed, [place] [facility] EXTERNAL PROVIDER RECORDS 2023-01-18 05:01:00 Doctor Unassigned, [place] [facility] ASSIGNMENT OF BENEFITS 2023-01-08 19:57:27 Docto r Unassigned, [place] [facility] US, pelvis 2019-05-25 [facility] 2016-01-06 00:00:00 [facility] Plan of Care Planned Activity Planned Date Details Comments Source Diagnostic Test Pending 2020-06-13 00:00:00 wet mount, vaginal [code = wet mount, vaginal] [facility] Diagnostic Test Pending 2020-06-13 00:00:00 urinalysis, dipstick [code = urinalysis, dipstick] [facility] Diagnostic Test Pending 2020-06-13 00:00:00 pap, LB + reflex to HR HPV if ASC-U [code = pap, LB + reflex to HR HPV if ASC-U] [facility] Diagnostic Test Pending 2020-06-13 00:00:00 culture, urine [code = culture, urine] [facility] Instructions [facility] Encounters Start Date/Time End Date/Time Encounter Type Admission Type Attending [facility] Care Facility Care Department Encounter ID Source 2024-01-21 09:30:00 Inpatient VIRAJ DOMINGO [facility] [id number] [facility] 2024-01-14 15:30:00 Inpatient VIRAJ DOMINGO [facility] [id number] [facility] 2024-11-07 17:19:00 2024-11-07 20:40:00 Emergency ER AMERICA WISE [facility] [id number] [facility] 2024-09-17 20:24:00 2024-09-18 03:25:00 Emergency ER FILOMENA COLINDRES [facility] [id number] [facility] 2024-02-25 15:58:00 2024-02-25 15:58:00 Outpatient VIRAJ DOMINGO [facility] [id number] [facility] 2023-11-23 09:09:30 2023-11-23 23:59:00 Outpatient VIVEK [facility] [id number] [facility] 2023-11-23 09:09:30 2023-11-23 23:59:00 Hospital Encounter Vivek Perez [facility] [id number] [facility] 2023-11-04 12:43:00 2023-11-04 12:43:00 Outpatient ROSSANA BOWEN [facility] [id number] [facility] 2023-09-07 00:00:00 2023-09-07 00:00:00 Outpatient Hawkins_M [facility] MM [id number] [facility] 2023-07-15 00:00:00 2023-07-15 00:00:00 Outpatient Hawkins_M MMG MMG [id number] [facility] 2023-07-15 00:00:00 2023-07-15 00:00:00 Asuncion Clay, RECEIVING ROOM CLERK: [address] [facility], [address], [place] [address] , Ph. [facility] [id number] [facility] 2023-07-13 09:30:00 2023-07-13 09:30:00 Outpatient VIVEK [facility] [id number] [facility] 2023-03-01 00:00:00 2023-03-01 00:00:00 Orders Only Doctor Unassigned, [place] [facility] [id number] [facility] 2023-01-18 00:00:00 2023-01-18 00:00:00 Orders Only Doctor Unassigned, [place] [facility] [id number] [id number] [facility] 2023-01-08 14:15:00 2023-01-08 15:39:22 Outpatient AMARILYS CALDERÓN [facility] [id number] [facility] 2023-01-08 00:00:00 2023-01-08 00:00:00 Orders Only Doctor Unassigned, [place] [facility] [id number] [facility] 2023-01-04 07:35:00 2023-01-05 13:12:00 Inpatient ER CARRI DANIEL [facility] [id number] [facility] 2023-01-03 21:20:00 2023-01-03 18:26:00 Inpatient ER Carri Daniel [facility] [id number] [facility] 2020-09-25 02:26:00 2020-09-25 02:26:00 Outpatient G_Pappas [facility] [id number] [facility] 2020-06-14 12:20:00 2020-06-14 12:20:00 Outpatient G_Pappas [facility] MMG [id number] [facility] 2020-06-13 16:29:00 2020-06-13 16:29:00 Outpatient KIRBY BURGESS [facility] [id number] [facility] 2020-06-13 00:00:00 2020-06-13 00:00:00 Kirby Tolliver MD: [address] [facility] [address], [place] [address] , Ph. [phone] G_Pappas MMG [facility] - OBGYN [id number] [facility] 2020-06-01 12:14:00 2020-06-01 12:14:00 Outpatient G_Pappas MMG MMG [id number] [facility] 2020-05-19 10:04:00 2020-05-19 10:04:00 Outpatient G_Pappas MMG MMG [id number] [facility] 2020-05-17 00:00:00 2020-05-17 00:00:00 Kirby Tolliver MD: [address] [facility] [address] [address] , Ph. [phone] G_Pappas MMG [facility] - OBGYN [id number] [facility] 2019-06-10 11:06:00 2019-06-10 11:06:00 Outpatient G_Pappas MMG MMG [id number] [facility] 2019-05-25 00:00:00 2019-05-25 00:00:00 Kirby Tolliver MD: [address] [facility], [address], [place] [address] , Ph. [phone] [facility] [id number] [facility] 2019-05-08 11:36:00 2019-05-08 11:36:00 Outpatient MACKENZIE SLATER [facility] [id number] [facility] 2019-05-08 00:00:00 2019-05-08 00:00:00 Mackenzieshawn Davis Ciro, NP: [address] [facility], [address] [address] , Ph. [phone] MM[facility] 30 701 [facility] 2018-11-22 16:10:00 2018-11-22 16:10:00 Outpatient MACKENZIE SLATER [facility] [id number] [facility] 2018-11-22 00:00:00 2018-11-22 00:00:00 Mackenzie Susanmarie Tanner, NP: [address] [place] [address] , Ph. [phone] [facility] - OBGYN Sharee [id number] [facility] 2016-03-11 07:13:00 2016-03-11 07:13:00 Outpatient KIRBY BURGESS [facility] [id number] [facility] 2016-01-05 18:00:00 2016-01-08 09:30:00 Inpatient EL SHAREEKIRBY BALL [facility] [id number] [facility] 2015-12-27 11:21:00 2015-12-27 11:21:00 Outpatient EL SHAREEKIRBY BALL [facility] [id number] [facility] 2015-12-06 16:33:00 2015-12-06 18:37:00 Emergency ER SHAREE, KIRBY [facility] [id number] [facility] 2015-11-22 14:56:00 2015-11-22 14:56:00 Outpatient ZULEYMA TOLLIVER KRIBY [facility] [id number] [facility] 2015-10-28 12:56:00 2015-10-28 12:56:00 Outpatient KIRBY ALVAREZ [facility] [id number] [facility] 2015-10-21 08:04:00 2015-10-21 08:04:00 Outpatient KIRBY ALVAREZ [facility] [id number] [facility] 2015-10-14 08:03:00 2015-10-14 08:03:00 Outpatient KIRBY ALVAREZ [facility] [id number] [facility] 2015-08-29 02:39:00 2015-08-29 05:36:00 Emergency ER JOANNE HARPER [facility] [id number] [facility] 2015-08-28 16:07:00 2015-08-28 16:07:00 Outpatient KIRBY ALVAREZ [facility] [id number] [facility] 2015-08-07 14:17:00 2015-08-07 14:17:00 Outpatient KIRBY ALVAREZ [facility] [id number] [facility] 2015-07-01 16:23:00 2015-07-01 16:23:00 Outpatient KIRBY ALVAREZ [facility] [id number] [facility] 2015-06-24 15:33:00 2015-06-24 15:33:00 Outpatient KIRBY ALVAREZ [facility] [id number] [facility] 2015-05-31 10:30:00 2015-05-31 10:30:00 Outpatient KIRBY ALVAREZ [facility] [id number] [facility] 2015-05-20 12:56:00 2015-05-20 16:25:00 Emergency ER VARGAS MEIR [facility] [id number] [facility] 2014-12-09 13:52:00 2014-12-09 17:00:00 Emergency ER LEEROY MAI [facility] [id number] [facility] 2014-08-22 17:49:00 2014-08-27 12:26:00 Inpatient ER HARSHA ENGEL [facility] [id number] [facility] 2014-07-14 03:14:00 2014-07-15 17:50:00 Inpatient ER KIRBY GARZA [facility] [id number] [facility] 2014-01-10 10:20:00 2014-01-10 10:20:00 Outpatient DAYA RICE [facility] [id number] [facility] 2011-05-18 20:59:00 2011-05-19 03:57:00 Emergency ER OZIEL GRIFFIN [facility] [id number] [facility] 2010-10-07 22:17:00 2010-10-08 00:12:00 Emergency ER ELIASBUCKYSHAKA [facility] [id number] [facility] 2010-10-03 16:00:00 2010-10-03 19:22:00 Emergency ER TAHMINA GARCIAHI [facility] [id number] [facility] Results Test Description Test Time Test Comments Results Result Co mments Source [facility], [id number] 08:55:00* Test Item Value Reference Range Interpretation Comme nts Test (test code = Test) negative [facility], [id number] 10:59:00* Test Item Value Reference Range Interpretation Comme nts Test (test code = Test) negative [facility] Group[facility]inalysis macro (dipstick) panel - [id number] 10:44:00* Test Item Value Reference Range Interpretation Comme nts Leukocytes (test code = Leukocytes) Negative Nitrite (test code = Nitrite) negative Urobilinogen (test code = Urobilinogen) .2 Protein (test code = Protein) Negative pH (test code = pH) 7.0 Blood (test code = Blood) Non-Hemolyzed: Trace Specific Eden (test code = Specific Eden) 1.025 Ketone (test code = Ketone) Negative Bilirubin (test code = Bilirubin) Negative Glucose (test code = Glucose) Negative Appearance (test code = Appearance) Clear Color (test code = Color) Yellow [facility] W Auto Differential panel - [id number] 09:43:00 * Test Item Value Reference Range Interpretation Comme nts white blood count (test code = white blood count) 11.8 K/uL 4.0-11.5 H red blood count (test code = red blood count) 5.34 M/uL 3.80-5.20 H hemoglobin (test code = hemoglobin) 14.6 g/dL 10.5-15.7 hematocrit (test code = hematocrit) 47.5 % 34.0-50.0 Erythrocyte mean corpuscular volume [Entitic volume] (test code = 28043-4) 89.0 fL 86-100 Erythrocyte mean corpuscular hemoglobin [Entitic mass] (test code = 15451-2) 27.3 pg 26.2-33.4 mean corpuscular HGB conc (t est code = mean corpuscular HGB conc) 30.7 g/dL 30-34 red cell distribution width (test code = red cell distribution width) 13.4 % 12.0-15.5 platelet count (test code = platelet count) 339 K/uL 165-450 mean platelet volume (test c ode = mean platelet volume) 11.2 fL 9.4-12.6 Neutrophils.segmented/100 leukocytes in Blood (test code = 90806-0) 71.2 % 44.4-80.1 Ig% (test code = Ig%) 0.5 % 0.0-0.4 H lymphocyte% (test code = lymphocyte%) 21.9 % 10.0-50.0 Monocytes/100 leukocytes in Blood by Automated count (test code = 5905-5) 4.8 % 3.6-12.0 Eosinophils/100 leukocytes i n Blood by Automated count (test code = 713-8) 1.0 % 0.0-5.4 Basophils/100 leukocytes in Unspecified specimen (test code = 72003-0) 0.6 % 0.1-1.2 absolute neutrophil count (t est code = absolute neutrophil count) 8.40 K/uL 1.56-6.13 H Ig# (test code = Ig#) 0.1 K/uL 0.0-0.03 H Lymphocytes [#/volume] in Unspecified specimen by Automated count (test code = 79227-4) 2.6 K/uL 1.18-3.74 mono # (test code = mono #) 0.57 K/uL 0.24-0.86 eos # (test code = eos #) 0.12 K/uL 0.04-0.36 basophil # (test code = baso delmy #) 0.07 K/uL 0.01-0.08 NRBC% (test code = NRBC%) 0 /100 WBC 0-0.2 NRBC# (test code = NRBC#) 0 K/[facility]L [facility], [id number] 09:43:00 NeutrophilsBandLymphocyteMonocyteMetamyelocytePlatelet EstimateToxic VacuolationGiant PlateletsMerit Health Woman'S HospitalHemoglobin A1c [Mass/volume] in [id number] 09:43:00* Test Item Value Reference Range Interpretation Comme nts Hemoglobin A1c in Blood (jose t code = 19167-5) 5.8 % 4.0-6.0 [facility] HospitalComprehensive metabolic 2000 panel - Serum or [...] (test code = 6768-6) 72 U/L 35-105 [facility] HospitalThyrotropin [Units/volume] in Serum or [id number] 09:43:00* Test Item Value Reference Range Interpretation Comme nts Thyrotropin [Units/volume] i n Serum or Plasma (test code = 3016-3) 1.74 uIU/mL 0.36-3.74 [facility] HospitalChoriogonadotropin.beta subunit [Units/volume] in Serum or [id number] 09:43:00* Test Item Value Reference Range Interpretation Comme nts HCG quantitative (test code = HCG quantitative) <0.1 0-5 [facility] HospitalChlamydia trachomatis+Neisseria gonorrhoeae DNA [Presence] in Cervix by Probe and target amplification [id number] 09:43:00 ResultsMatagoTurning Point Mature Adult Care UnitMicroscopic observation [Identifier] in Cervix by Cyto stain.thin [id number] 00:00:00ResultsMatagoTurning Point Mature Adult Care UnitUrinalysis macro (dipstick) panel - [id number] 15:20:22* Test Item Value Reference Range Interpretation Comme nts Leukocytes (test code = Leukocytes) Trace Nitrite (test code = Nitrite) negative Urobilinogen (test code = Urobilinogen) .2 Protein (test code = Protein) 30 pH (test code = pH) 6.0 Blood (test code = Blood) Moderate Specific Eden (test code = Specific Eden) 1.030 Ketone (test code = Ketone) Small Bilirubin (test code = Bilirubin) Negative Glucose (test code = Glucose) Negative Appearance (test code = Appearance) Clear Color (test code = Color) Yellow [facility] Hospitalpregnancy test, [id number] 15:19:02* Test Item Value Reference Range Interpretation Comme nts Test (test code = Test) negative [facility]
[2024-11-09] MEDS ORDERED: ONDANSETRON 4 MG/2 ML VIAL ONE (13:49)
[2024-11-09] MEDS ORDERED: NA CHLORIDE 0.9% 1,000 ML ONE (13:49)
[2024-11-09 14:02] LABS: Absolute Basophils 0.1 K/uL (0-0.5); Absolute Lymphocytes (CBC) 1.9 K/uL (0.7-4.9); Absolute Monocytes 0.6 K/uL (0.1-1.3); Absolute Neutrophil 6.3 K/uL (1.8-8.0); Basophils % 1.1 % (0-1.3); Eosinophils % 0.1 % (0-4.4); Hematocrit 47.1 % (36.0-45.0); Hemoglobin 15.5 g/dL (12.0-15.0); Lymphocytes % 21.6 % (15.3-44.8); MCH 29.8 pg (27.0-35.0); MCV 90.5 fL (80-100); MPV 9.6 fL (7.6-11.3); Monocytes % 6.7 % (3.3-12.3); Neutrophils % 70.5 % (41.7-73.7); Nucleated Red Blood Cells % 0.2 % (0-0); Platelets 328 thou/uL (152-406); RBC Red Blood Cell Count 5.21 M/uL (3.86-4.86); Red Cell Distribution Width 13.1 % (12.1-15.2)
[2024-11-09 14:08] LABS: Albumin 3.9 g/dL (3.4-5.0); Anion Gap 11.2 mEq/L (5.0-15.0); Bilirubin Total 0.7 mg/dL (0.2-1.0); Globulin 4.1 g/dL (2.3-3.5); Potassium 3.2 mEq/L (3.5-5.1)
[2024-11-09] MEDS ORDERED: MORPHINE 4 MG/ML SYR ONE (14:13)
[2024-11-09] MEDS ORDERED: FAMOTIDINE 20 MG/2 ML VIAL IV ONE (14:13)
[2024-11-09 14:36] LABS: Specific Gravity 1.027 (1.005-1.030)
[2024-11-09 14:38] LABS: Specific Gravity 1.027 (1.005-1.030); Sqamous Epithelial <5 /HPF (None Seen); Urine Bacteria None Seen /HPF (<20); Urine Bilirubin NEGATIVE (Negative); Urine Blood 3+ (Negative); Urine Clarity Turbid (Clear); Urine Color Yellow (Yellow); Urine Crystals Unidentified Few /HPF (None Seen); Urine Culture Reflex Order NOT NEEDED; Urine Glucose NEGATIVE (Negative); Urine Ketones 3+ (Negative); Urine Microscopic Reflex YN ORDER UMIC; Urine Mucus 2+ /HPF (None Seen); Urine Nitrite NEGATIVE (Negative); Urine Protein 1+ (Negative); Urine RBC >50 /HPF (None Seen); Urine Urobilinogen Normal (Normal); Urine WBC <5 /HPF (<5); Urine WBC Clump Rare /HPF (None Seen); Urine Yeast (Budding) Trace /HPF (None Seen); Urine pH 6.5 (5.0-7.0)
--- NOTE | 2024-11-09 14:45 | RAD REPORT ---
EXAM: Right upper quadrant ultrasound. CLINICAL HISTORY: ABD PAIN COMPARISON: 03/03/2022 FINDINGS: Gallbladder: Prominent gallstone present in the gallbladder. Bile ducts: No intrahepatic or extrahepatic biliary dilatation. Common bile duct measures 2 mm. Limited imaging of the liver shows no concerning finding. IMPRESSION: Cholelithiasis.
--- NOTE | 2024-11-09 15:02 | RAD REPORT ---
EXAMINATION: CT ABDOMEN AND PELVIS WITH CONTRAST CLINICAL INDICATION: ABD PAIN TECHNIQUE: CT abdomen and pelvis was performed, after the administration of IV contrast, as [facility]. Axial, sagittal and coronal reconstructions were obtained. One or more of the following dose reduction techniques were used: Automated exposure control, adjustment of the mA and k V according to patient size, and iterative reconstruction. Unless otherwise specified, incidental findings do not require dedicated imaging follow-up. COMPARISON: 03/03/2022 FINDINGS: LOWER CHEST: The visualized lung bases are clear. LIVER: Normal in size and contour. No focal lesion. Grossly unremarkable gallbladder. SPLEEN: Normal size. No focal lesion. PANCREAS: No mass, ductal dilation, or marilee-pancreatic fluid. ADRENALS: Normal; no mass. KIDNEYS: Punctate calculi in both kidneys without hydronephrosis. GASTROINTESTINAL TRACT: No evidence of free air, significant intra-abdominal free fluid, bowel obstru ction or abscess. Mild sigmoid diverticulosis without diverticulitis. APPENDIX: Appendix measures up to 7 mm without surrounding inflammation. LYMPH NODES: No lymphadenopathy. MUSCULOSKELETAL: No acute or suspicious osseous abnormality. ADDITIONAL FINDINGS: None. IMPRESSION: No acute or concerning abnormalities seen in the abdomen or pelvis.
--- NOTE | 2024-11-09 15:37 | EDPHYS ---
Physician Documentation [facility] Name: Kiesha Joiner Age: 34 yrs Sex: Female : 1990 Arrival Date: 11/09/2024 Time: 12:20 Bed 16 Private MD: ED Physician Ortega Villalpando HPI: 11/09 15:27 This 34 yrs old Female presents to ER via Ambulatory with complaints of yue Abdominal Pain, Nausea/Vomiting. 15:27 The patient presents to the emergency department with nausea, that is mild, that is yue moderate, vomiting, that is intermittent. Onset: The symptoms/episode began/occurred 4 day(s) ago. Possible causes: unknown. The symptoms are aggravated by food , The symptoms are alleviated by remaining still. Associated signs and symptoms: Pertinent positives: abdominal pain, diarrhea, nausea, vomiting. Severity of symptoms: At their worst the symptoms were mild moderate in the emergency department the symptoms are unchanged. The patient has experienced similar episodes in the past, several times. 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 - Infectious Disease History:: Denies. - Social history:: Smoking status: Patient denies any tobacco usage or history of. ROS: 15:29 Constitutional: Negative for fever, chills, and weight loss, Eyes: Negative for injury, yue pain, redness, and discharge, ENT: Negative for injury, pain, and discharge, Neck: Negative for injury, pain, and swelling, Cardiovascular: Negative for chest pain, palpitations, and edema, Respiratory: Negative for shortness of breath, cough, wheezing, and pleuritic chest pain, Back: Negative for injury and pain, : Negative for injury, bleeding, discharge, and swelling, MS/Extremity: Negative for injury and deformity, Skin: Negative for injury, rash, and discoloration, Neuro: Negative for headache, weakness, numbness, tingling, and seizure, Psych: Negative for depression, anxiety, suicide ideation, homicidal ideation, and hallucinations, Allergy/Immunology: Negative for hives, rash, and allergies, Endocrine: Negative for neck swelling, polydipsia, polyuria, polyphagia, and marked weight changes, Hematologic/Lymphatic: Negative for swollen nodes, abnormal bleeding, and unusual bruising, 15:29 Abdomen/GI: Positive for abdominal pain, nausea and vomiting, Exam: 15:29 Constitutional: This is a well developed, well nourished patient who is awake, alert, yue and in no acute distress. Head/Face: Normocephalic, atraumatic. Eyes: Pupils equal round and reactive to light, extra-ocular motions intact. Lids and lashes normal. Conjunctiva and sclera are non-icteric and not injected. Cornea within normal limits. Periorbital areas with no swelling, redness, or edema. ENT: Nares patent. No nasal discharge, no septal abnormalities noted. Tympanic membranes are normal and external auditory canals are clear. Oropharynx with no redness, swelling, or masses, exudates, or evidence of obstruction, uvula midline. Mucous membranes moist. Neck: Trachea midline, no thyromegaly or masses palpated, and no cervical lymphadenopathy. Supple, full range of motion without nuchal rigidity, or vertebral point tenderness. No Meningismus. Chest/axilla: Normal chest wall appearance and motion. Nontender with no deformity. No lesions are appreciated. Cardiovascular: Regular rate and rhythm with a normal S1 and S2. No gallops, murmurs, or rubs. Normal PMI, no JVD. No pulse deficits. Respiratory: Lungs have equal breath sounds bilaterally, clear to auscultation and percussion. No rales, rhonchi or wheezes noted. No increased work of breathing, no retractions or nasal flaring. Back: No spinal tenderness. No costovertebral tenderness. Full range of motion. Skin: Warm, dry with normal turgor. Normal color with no rashes, no lesions, and no evidence of cellulitis. MS/ Extremity: Pulses equal, no cyanosis. Neurovascular intact. Full, normal range of motion., bilateral aka Neuro: Awake and alert, GCS 15, oriented to person, place, time, and situation. Cranial nerves II-XII grossly intact. Motor strength 5/5 in all extremities. Sensory grossly intact. Cerebellar exam normal. Normal gait. Psych: Awake, alert, with orientation to person, place and time. Behavior, mood, and affect are within normal limits. 15:29 Abdomen/GI: Inspection: abdomen appears normal, Bowel sounds: normal, Palpation: mild abdominal tenderness, in all quadrants, Liver: no appreciated palpable abnormalities, Hernia: not appreciated, 15:29 Back: Exam negative for acute changes, Vital Signs: 12:35 BP 135 / 82; Pulse 55; Resp 16; Temp 97.6; Pulse Ox 99% on R/A; Weight 91.63 kg; Height iw 5 ft. 4 in. ; Pain 7/10; 16:35 BP 145 / 83; Pulse 60; Resp 16; ll1 17:05 BP 141 / 81; Pulse 58; Resp 15; Pulse Ox 99% ; ll1 12:35 Body Mass Index 34.67 (91.63 kg, 162.56 cm) iw 12:35 Pain Scale: Adult iw MDM: 12:30 Medical Screening Exam initiated yue 15:30 Data reviewed: vital signs, nurses notes, lab test result(s), radiologic studies, CT yue scan, ultrasound. Consideration of Admission/Observation Escalation of care including admission/observation considered. I considered the following discharge prescriptions or medication management in the emergency department Medications were administered in the Emergency Department. See MAR. Independent interpretation of the following test(s) in the Emergency Department CT Scan: My interpretation is CT AB/PELVIS. Radiology Department Ultrasound: My interpretation is GALLBLSADDER CHOLELITHIASIS. Test considered but Not performed: MRI: NO MRCP. Historians other than the Patient: PT WELL INFORMED. Care significantly affected by the following chronic conditions: Hypertension, Obesity. 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 11/09 13:30 Order name: CBC with Diff; Complete Time: 15:22 1 11/09 13:30 Order name: CMP; Complete Time: 15:22 1 11/09 13:30 Order name: Lipase; Complete Time: 15:22 1 11/09 13:30 Order name: Test, Urine; Complete Time: 15:22 1 11/09 13:30 Order name: Urinalysis w/ reflexes; Complete Time: 15:22 [facility] 11/09 14:02 Order name: CT Abd/Pelvis - IV Contrast Only; Complete Time: 15:22 yue 11/09 14:02 Order name: US Abdomen Limited; Complete Time: 15:22 yue 11/09 13:30 Order name: IV Saline Lock; Complete Time: 13:30 [facility] 11/09 13:30 Order name: Labs collected and sent; Complete Time: 13:30 [facility] 11/09 15:27 Order name: PO challenge: JUICE; Complete Time: 15:32 yue Administered Medications: 14:21 Drug: NS 0.9% IV 1000 ml IV at 1000 ml once; to be given as a bolus over 60 minutes ll1 Route: IV; Rate: 1000 ml; Site: right antecubital; 17:06 Follow up: Response: No adverse reaction; IV Status: Completed infusion; IV Intake: ll1 1000ml 14:21 Drug: Famotidine IVP 20 mg IVP once; dilute with 10 mL 0.9% NaCl; give over 2 minutes ll1 Route: IVP; Site: right antecubital; 15:32 Follow up: Response: No adverse reaction ll1 14:21 Drug: morphine IVP or IV 4 mg IVP once over 4 mins Route: IVP; Infused Over: 4 mins; ll1 Site: right antecubital; 15:32 Follow up: Response: No adverse reaction ll1 14:21 Drug: Ondansetron IVP 4 mg IVP once; over 2 minutes Route: IVP; Site: right antecubital;ll1 15:32 Follow up: Response: No adverse reaction ll1 16:57 Drug: Promethazine IN Suppository 25 mg IN once Route: IN; ll1 17:06 Follow up: Response: No adverse reaction; Nausea is decreased; RASS: Alert and Calm (0) ll1 Disposition Summary: 11/09/24 15:36 Discharge Ordered Notes: Location: Home yue Problem: new yue Symptoms: have improved yue Condition: Stable yue Diagnosis - Abdominal pain, Generalized yue - Hypokalemia yue - Vomiting yue - Other cholelithiasis without obstruction yue Followup: yue - With: Private Physician - When: 2 - 3 days - Reason: Recheck today's complaints, Continuance of care, Re-evaluation by your physician Followup: yue - With: Jacobo Reeves MD - When: 2 - 3 days - Reason: Recheck today's complaints, Re-evaluation by your physician Discharge Instructions: - Discharge Summary Sheet yue - Abdominal Pain, Adult yue - Potassium Content of Foods yue - Nausea and Vomiting, Adult yue - Cholelithiasis yue - Cholelithiasis, [id number]-Gyfo yue - Nausea and Vomiting, Adult, Bkob-[id number] yue - Abdominal Pain, Adult, Capf-jb-[id number] yue - Hypokalemia yue Forms: - Medication Reconciliation Form yue - Antibiotic Education yue - Prescription Opioid Use yue - Patient Portal Instructions yue - Leadership Thank You Letter yue - Work release form ll1 Prescriptions: - ondansetron 4 mg Oral Tablet,disintegrating - take 1 tablet ORAL route every 6-8 hours for 5 days; 20 tablet; Refills: 0, yue Product Selection Permitted - promethazine 25 mg Rectal suppository - insert 1 suppository RECTAL route every 6 to 8 hours PRN INTRACTABLE NAUSEA AND yue VOMITING; 20 suppository; Refills: 0, Product Selection Permitted Signatures: Dispatcher [employer] Ortega Avila MD MD cha Williams, Irene, RN RN Kerry Chaudhry RN RN ll1
--- NOTE | 2024-11-09 15:37 | ER ---
Nurse's Notes [facility] Name: Kiesha Joiner Age: 34 yrs Sex: Female : 1990 Arrival Date: 11/09/2024 Time: 12:20 Bed 16 Private MD: Diagnosis: Abdominal pain, Generalized;Hypokalemia;Vomiting;Other cholelithiasis without obstruction Presentation: 11/09 12:35 Chief complaint: Patient states: vomiting X 2 days , was told he has UTI at another hospital. Coronavirus screen: At this time, the client does not indicate any symptoms associated with coronavirus-19. Ebola Screen: No symptoms or risks identified at this time. Initial Sepsis Screen: Does the patient meet any 2 criteria? No. Patient's initial sepsis screen is negative. Does the patient have a suspected source of infection? No. Patient's initial sepsis screen is negative. Risk Assessment: Do you want to hurt yourself or someone else? Patient reports no desire to harm self or others. Onset of symptoms was November 07, 2024. 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 - Infectious Disease History:: Denies. - Social history:: Smoking status: Patient denies any tobacco usage or history of. Screenin:29 [facility] ED Fall Risk Assessment (Adult) History of falling in the last 3 months, ll1 including since admission No falls in past 3 months (0 pts) Confusion or Disorientation No (0 pts) Intoxicated or Sedated No (0 pts) Impaired Gait No (0 pts) Mobility Assist Device Used No (0 pt) Altered Elimination No (0 pt) Score/Fall Risk Level 0 - 2 = Low Risk Maintained a safe environment, Hourly rounding (assess needs \T\ fall precautionary measures) done. Abuse screen: Denies threats or abuse. Nutritional screening: No deficits noted. Tuberculosis screening: No symptoms or risk factors identified. Assessment: 13:25 General: Appears uncomfortable, ill, Behavior is calm, cooperative, appropriate for ll1 age. Pain: Complains of pain in abdomen Quality of pain is described as aching, crampy. GI: Reports lower abdominal pain, upper abdominal pain, cramping, nausea, vomiting. : Reports being treated for UTI. 14:21 Reassessment: to CT via stretcher. ll1 15:22 Reassessment: No changes from previously documented assessment. Dr. Villalpando at . ll1 15:32 Reassessment: No changes from previously documented assessment. Patient and/or family ll1 updated on plan of care and expected duration. Pain level reassessed. Patient is alert, oriented x 3, equal unlabored respirations, skin warm/dry/pink. 16:36 Reassessment: No changes from previously documented assessment. Patient and/or family ll1 updated on plan of care and expected duration. Pain level reassessed. Patient is alert, oriented x 3, equal unlabored respirations, skin warm/dry/pink. 17:09 Reassessment: No changes from previously documented assessment. Patient and/or family ll1 updated on plan of care and expected duration. Pain level reassessed. Patient is alert, oriented x 3, equal unlabored respirations, skin warm/dry/pink. Patient states feeling better. Patient states symptoms have improved. Vital Signs: 12:35 BP 135 / 82; Pulse 55; Resp 16; Temp 97.6; Pulse Ox 99% on R/A; Weight 91.63 kg; Height iw 5 ft. 4 in. ; Pain 7/10; 16:35 BP 145 / 83; Pulse 60; Resp 16; ll1 17:05 BP 141 / 81; Pulse 58; Resp 15; Pulse Ox 99% ; ll1 12:35 Body Mass Index 34.67 (91.63 kg, 162.56 cm) iw 12:35 Pain Scale: Adult iw ED Course: 12:25 Patient arrived in ED. iw 12:30 Ortega Villalpando MD is Attending Physician. yue 12:36 Triage completed. iw 13:15 Kerry Villalba, NOMI is Primary Nurse. ll1 13:15 Arm band placed on Patient placed in an exam room, on a stretcher. ll1 13:15 Provided Education on: ER procedures and process. ll1 13:25 Inserted saline lock: 22 gauge in right antecubital area, using aseptic technique. ll1 Blood collected. Flushed with 10 mL NS. 13:25 Initial lab(s) drawn, by me, sent to lab. ll1 14:23 Urinalysis w/ reflexes Sent. ll1 14:23 Test, Urine Sent. ll1 14:33 Radiology exam delayed due to test not completed at this time. nj 14:39 US Abdomen Limited In Process Unspecified. EDMS 14:55 CT Abd/Pelvis - IV Contrast Only In Process Unspecified. EDMS 15:28 No provider procedures requiring assistance completed. Urine collected: clean catch ll1 specimen, kimberly colored, Amount Voided: 150mL. 15:36 Jacobo Reeves MD is Referral Physician. [facility] 17:09 Patient has correct armband on for positive identification. Bed in low position. ll1 17:09 IV discontinued, intact, bleeding controlled, No redness/swelling at site. Pressure ll1 dressing applied. Administered Medications: 14:21 Drug: NS 0.9% IV 1000 ml IV at 1000 ml once; to be given as a bolus over 60 minutes ll1 Route: IV; Rate: 1000 ml; Site: right antecubital; 17:06 Follow up: Response: No adverse reaction; IV Status: Completed infusion; IV Intake: ll1 1000ml 14:21 Drug: Famotidine IVP 20 mg IVP once; dilute with 10 mL 0.9% NaCl; give over 2 minutes ll1 Route: IVP; Site: right antecubital; 15:32 Follow up: Response: No adverse reaction ll1 14:21 Drug: morphine IVP or IV 4 mg IVP once over 4 mins Route: IVP; Infused Over: 4 mins; 1 Site: right antecubital; 15:32 Follow up: Response: No adverse reaction ll1 14:21 Drug: Ondansetron IVP 4 mg IVP once; over 2 minutes Route: IVP; Site: right antecubital;ll1 15:32 Follow up: Response: No adverse reaction ll1 16:57 Drug: Promethazine NM Suppository 25 mg NM once Route: NM; ll1 17:06 Follow up: Response: No adverse reaction; Nausea is decreased; RASS: Alert and Calm (0) ll1 Medication: 17:09 VIS not applicable for this client. ll1 Intake: 17:06 IV: 1000ml; Total: 1000ml. ll1 Outcome: 15:36 Discharge ordered by . yue 17:09 Discharged to home via wheelchair, ll1 17:09 Condition: stable 17:09 Discharge instructions given to patient, Instructed on discharge instructions, follow up and referral plans. medication usage, Demonstrated understanding of instructions, follow-up care, medications, Prescriptions given X 2, 17:10 Patient left the ED. ll1 Signatures: Dispatcher [employer] EDOrtega Garcia MD MD cha Williams, Irene, Juan Carlos Sotelo RN, Lynsay, RN RN ll1
[2024-11-09] MEDS ORDERED: PROMETHAZINE 25 MG/SUPP PR ONE (16:47)
[2024-11-09 21:15] VITALS: TEMP 97.6; O2SAT 99
[2024-11-09 21:19] VITALS: BP 141/81
== END 2024-11-09 17:10 | disposition home or self-care (01) ==
LOC: ER 12:20
DX: K80.80 Other cholelithiasis without obstruction (principal); R10.84 Generalized abdominal pain; E87.6 Hypokalemia; R11.10 Vomiting, unspecified; I10 Essential (primary) hypertension; Z79.899 Other long term (current) drug therapy
CPT/HCPCS: 96361; 85025; 81001; 36415; 81025; 83690; 80053; 74177; 76705; 96375; 96374; 99284; Q9967; J2405; J7030

== ENCOUNTER 2024-11-15 10:23 | Emergency (ER) | payer BC ==
--- OUTSIDE RECORDS SUMMARY | 2024-11-15 10:27 | XMS REPORT | Continuity of Care Document ---
Author Name Unknown Address [address] [facility] [address] [place] [address] [facility] Address [address] [facility] [address] [place] [address] Care Team Providers Care Radiology Ct Technologist Name Role Phone KAYLA LUNDBERG Primary Care Physician UnavailVIRAJ Jesus Attending Clinician Unavailable AMERICA WISE Attending Clinician UnavailFILOMENA Jade Attending Clinician Unavailab AMARILYS Myles Attending Clinician Unavailable AMARILYS ZHONG Attending Clinician Unavailable VIVEK PEREZ Attending Clinician Unavailable Vivek Perez MD Attending Clinician [phone] ROSSANA NICHOLAS Attending Clinician Unavailable Danna_Rosalie Attending Clinician Unavailable Doctor Unassigned, Roy Attending Clinician U CARRI Orr Attending Clinician Unavailable CRISTIAN Attending Clinician Unavailable G_Pappas Attending Clinician Unavailable KIRBY TOLLIVER Attending Clinician UnavailMACKENZIE Farias Attending Clinician Unavailable KIRBY GARZA Attending Clinician UnavailJOANNE mendoza BA Attending Clinician Unavailable MEIR KAYE Attending Clinician Unavailable LEEROY MAI Attending Clinician Unavailable HARSHA ENGEL Attending Clinician Unavailable DAYA RAMIREZ Attending Clinician Unavailable OZIEL GRIFFIN Attending Clinician Unavailab JORGE A [place] Attending Clinician Unavailable AMARILYS ZHONG Admitting Clinician Unavailable Hawkins_Rosalie Admitting Clinician Unavailable CARRI DANIEL Admitting Clinician Unavailable CRISTIAN Admitting Clinician Unavailable G_Pappas Admitting Clinician Unavailable SHAREE, KIRBY A Admitting Clinician UnavailHARSHA Francisco Admitting Clinician Unavailable KIRBY GARZA Admitting Clinician Luz dupont Payers Payer Name Policy Type Policy Number Effective Date Expirati on Date Source [place] [id number] 2019 00:00:00 [place] [id number] 2023 00[place]00[place] [id number] 2019 00:00:00 [place] [place]MEDICAID[place] [id number] [facility] (MEDICAID HMO) [id number] Problems Condition Name Condition Details Condition Category Status Onset Date Resolution Date Last Treatment Date Treating Clinician Comments Source Mucopurule nt conjunctiv itis of bilateral eyes Mucopurule nt Conjunctiv itis of Bilateral Eyes Problem Active 907 00:00: 00 [facility] Dysmenorrh ea Dysmenorrh ea Problem Active 05-18 00:00: 00 [facility] Menorrhagi a Menorrhagi a Problem Active 05-18 00:00: 00 [facility] Uses oral contracept ion Uses Oral Contracept ion Problem Active 05-08 00:00: 00 [facility] Condyloma acuminata of vulva Condyloma Acuminata of Vulva Problem Active [facility] Obesity Obesity Problem Active [facility] Anxiety Anxiety Problem Active [facility] Hypertensi ve disorder Hypertensi ve Disorder Problem Active [facility] Allergies, Adverse Reactions, Alerts Allergy Name Allergy Type Status Severity Reaction(s) Onset Date Inactive Date Treating Clinician Comments Source DULOXETI NE DRUG INGREDI Active Hallucinates 01-08 00:00: 00 [facility] Duloxeti ne Propensi ty to adverse reaction s Active Hallucinatio ns 01-08 00:00: 00 [facility] NO KNOWN ALLERGIE S Drug Class Active [facility] Cymbalta Allergy to substanc e Active Severe Other [facility] Tizanidi ne Allergy to substanc e Active Severe Other [facility] Social History Social Habit Start Date Stop Date Quantity Comments Source [facility] to SARS-CoV-2 (event) 2022-12-29 00:00:00 2023-01-08 13:56:00 Not sure [facility] Tobacco use and exposure 2023-01-08 00:00:00 2023-01-08 00:00:00 Smokeless tobacco non-user [facility] Alcohol intake 2023-01-08 00:00:00 2023-01-08 00:00:00 Current drinker of alcohol (finding) [facility] Alcohol Comment 2023-01-08 00:00:00 2023-01-08 00:00:00 social [facility] History of Social function 2023-01-08 00:00:00 2023-01-08 00:00:00 [facility] Sex Assigned At 1990 00:00:00 1990 00:00:00 [facility] Smoking Status Start Date Stop Date Source Former Smoker [facility] Tobacco smoking consumption unknown [facility] Never smoked tobacco [facility] Medications Ordered Medication Name Filled Medication Name Start Date Stop Date Current Medication? Ordering Clinician Indication Dosage Frequency Signature (SIG) Comments Components Source gabapentin 100 mg capsule 01-08 00:00: 00 Yes [id number] 100mg Take 1 capsule by mouth in the morning and 1 capsule at noon and 1 capsule in the evening. Take 1 capsule at bedtime for the first week, then can increase to three times per day as tolerated. Univers [facility] acetaminoph en 300 mg-codeine 30 mg tablet acetaminoph en 300 mg-codeine 30 mg tablet No acetaminop hen 300 mg-codeine 30 mg tablet [facility] Bactrim DS 800 mg-160 mg tablet Take 1 tablet twice a day by oral route for 3 days. Bactrim DS 800 mg-160 mg tablet Take 1 tablet twice a day by oral route for 3 days. No 1 BID Bactrim DS 800 mg-160 mg tablet Take 1 tablet twice a day by oral route for 3 days. [facility] citalopram 20 mg tablet Take 1 tablet every day by oral route. citalopram 20 mg tablet Take 1 tablet every day by oral route. No 1 Q1D citalopram 20 mg tablet Take 1 tablet every day by oral route. [facility] clonazepam 1 mg tablet clonazepam 1 mg tablet No clonazepam 1 mg tablet [facility] Daysee 0.15 mg-30 mcg (84)/10 mcg(7) tablets,3 month dose pack Take 1 tablet every day by oral route. Daysee 0.15 mg-30 mcg (84)/10 mcg(7) tablets,3 month dose pack Take 1 tablet every day by oral route. No Daysee 0.15 mg-30 mcg (84)/10 mcg(7) tablets,3 month dose pack Take 1 tablet every day by oral route. [facility] meloxicam 15 mg tablet meloxicam 15 mg tablet No meloxicam 15 mg tablet [facility] phentermine phentermine No ph entermin e [facility] tizanidine 4 mg tablet tizanidine 4 mg tablet No tizanidine 4 mg tablet [facility] clonazepam 1 mg tablet TAKE 1 TABLET BY MOUTH EVERY NIGHT AT BEDTIME NEEDED clonazepam 1 mg tablet TAKE 1 TABLET BY MOUTH EVERY NIGHT AT BEDTIME NEEDED No clonazepam 1 mg tablet TAKE 1 TABLET BY MOUTH EVERY NIGHT AT BEDTIME NEEDED [facility] cyclobenzap rine 10 mg tablet TAKE 1/2-1 TABLET BY MOUTH THREE TIMES DAILY NEEDED cyclobenzap rine 10 mg tablet TAKE 1/2-1 TABLET BY MOUTH THREE TIMES DAILY NEEDED No cyclobenza glenn 10 mg tablet TAKE 1/2-1 TABLET BY MOUTH THREE TIMES DAILY NEEDED [facility] Daysee 0.15 mg-30 mcg (84)/10 mcg(7) tablets,3 month dose pack TAKE 1 TABLET BY MOUTH EVERY DAY Daysee 0.15 mg-30 mcg (84)/10 mcg(7) tablets,3 month dose pack TAKE 1 TABLET BY MOUTH EVERY DAY No Daysee 0.15 mg-30 mcg (84)/10 mcg(7) tablets,3 month dose pack TAKE 1 TABLET BY MOUTH EVERY DAY [facility] diclofenac sodium 75 mg tablet,joseph yed release TAKE 1 TABLET BY MOUTH TWICE DAILY diclofenac sodium 75 mg tablet,joseph yed release TAKE 1 TABLET BY MOUTH TWICE DAILY No diclofenac sodium 75 mg tablet,del ayed release TAKE 1 TABLET BY MOUTH TWICE DAILY [facility] fluconazole 150 mg tablet TAKE 1 TABLET BY MOUTH NOW AND REPEAT IN 3 DAYS fluconazole 150 mg tablet TAKE 1 TABLET BY MOUTH NOW AND REPEAT IN 3 DAYS No fluconazol e 150 mg tablet TAKE 1 TABLET BY MOUTH NOW AND REPEAT IN 3 DAYS [facility] fluoxetine 20 mg capsule TAKE 1 CAPSULE BY MOUTH EVERY DAY fluoxetine 20 mg capsule TAKE 1 CAPSULE BY MOUTH EVERY DAY No fluoxetine 20 mg capsule TAKE 1 CAPSULE BY MOUTH EVERY DAY [facility] hydrocodone 10 mg-acetamin ophen 325 mg tablet TAKE 1 TABLET BY MOUTH THREE TIMES DAILY NEEDED hydrocodone 10 mg-acetamin ophen 325 mg tablet TAKE 1 TABLET BY MOUTH THREE TIMES DAILY NEEDED No hydrocodon e 10 mg-acetami nophen 325 mg tablet TAKE 1 TABLET BY MOUTH THREE TIMES DAILY NEEDED [facility] isotretinoi n 30 mg capsule TAKE ONE CAPSULE BY MOUTH TWICE DAILY WITH FOOD isotretinoi n 30 mg capsule TAKE ONE CAPSULE BY MOUTH TWICE DAILY WITH FOOD No isotretino in 30 mg capsule TAKE ONE CAPSULE BY MOUTH TWICE DAILY WITH FOOD [facility] Otezla 30 mg tablet Otezla 30 mg tablet No Otezla 30 mg tablet [facility] tobramycin 0.3 % eye drops INSTILL 1 DROP INTO AFFECTED EYE(S) BY OPHTHALMIC ROUTE EVERY 4 HOURS tobramycin 0.3 % eye drops INSTILL 1 DROP INTO AFFECTED EYE(S) BY OPHTHALMIC ROUTE EVERY 4 HOURS No tobramycin 0.3 % eye drops INSTILL 1 DROP INTO AFFECTED EYE(S) BY OPHTHALMIC ROUTE EVERY 4 HOURS [facility] Vyvanse 40 mg capsule TAKE 1 CAPSULE BY MOUTH EVERY MORNING Vyvanse 40 mg capsule TAKE 1 CAPSULE BY MOUTH EVERY MORNING No Vyvanse 40 mg capsule TAKE 1 CAPSULE BY MOUTH EVERY MORNING [facility] Vital Signs Vital Name Observation Time Observation Value Comments S ource BMI (Body Mass Index) 2023-07-15 00:00:00 39.5 kg/m2 [facility] Body Weight 2023-07-15 00:00:00 3800 [oz_av] [facility] BP Diastolic 2023-07-15 00:00:00 84 mm[Hg] [facility] BP Systolic 2023-07-15 00:00:00 126 mm[Hg] [facility] Height 2023-07-15 00:00:00 65 [in_i] [facility] BP Diastolic 2020-06-13 00:00:00 93 mm[Hg] [facility] Height 2020-06-13 00:00:00 65 [in_i] [facility] BMI (Body Mass Index) 2020-06-13 00:00:00 37.3 kg/m2 [facility] BP Systolic 2020-06-13 00:00:00 132 mm[Hg] [facility] Body Weight 2020-06-13 00:00:00 223.9 [lb_av] [facility] BP Diastolic 2020-05-17 00:00:00 95 mm[Hg] [facility] Height 2020-05-17 00:00:00 65 [in_i] [facility] BMI (Body Mass Index) 2020-05-17 00:00:00 38.2 kg/m2 [facility] BP Systolic 2020-05-17 00:00:00 134 mm[Hg] [facility] Body Weight 2020-05-17 00:00:00 229.7 [lb_av] [facility] BP Diastolic 2019-05-25 00:00:00 92 mm[Hg] [facility] Height 2019-05-25 00:00:00 65 [in_i] [facility] BMI (Body Mass Index) 2019-05-25 00:00:00 40 kg/m2 [facility] BP Systolic 2019-05-25 00:00:00 141 mm[Hg] [facility] Body Weight 2019-05-25 00:00:00 240.3 [lb_av] [facility] BP Diastolic 2019-05-08 00:00:00 90 mm[Hg] [facility] Height 2019-05-08 00:00:00 65 [in_i] [facility] BMI (Body Mass Index) 2019-05-08 00:00:00 40.8 kg/m2 [facility] BP Systolic 2019-05-08 00:00:00 140 mm[Hg] [facility] Body Weight 2019-05-08 00:00:00 245.3 [lb_av] [facility] BP Diastolic 2018-11-22 00:00:00 89 mm[Hg] [facility] Height 2018-11-22 00:00:00 65 [in_i] [facility] BMI (Body Mass Index) 2018-11-22 00:00:00 40.6 kg/m2 [facility] BP Systolic 2018-11-22 00:00:00 133 mm[Hg] [facility] Body Weight 2018-11-22 00:00:00 244 [lb_av] [facility] Procedures Procedure Date / Time Performed Performing Clinicia n Source PHYSICIAN ORDERS 2023-03-01 05:01:00 Doctor Unas signed, Roy [facility] EXTERNAL PROVIDER RECORDS 2023-01-18 05:01:00 Doctor Unassigned, Roy [facility] ASSIGNMENT OF BENEFITS 2023-01-08 19:57:27 Docto r Unassigned, Roy [facility] US, pelvis 2019-05-25 00:00:00 [facility] Caesarean Section 2016-01-06 00:00:00 [facility] Plan of Care Planned Activity Planned Date Details Comments Source Diagnostic Test Pending 2020-06-13 00:00:00 wet mount, vaginal [code = wet mount, vaginal] [facility] Diagnostic Test Pending 2020-06-13 00:00:00 urinalysis, dipstick [code = urinalysis, dipstick] [facility] Diagnostic Test Pending 2020-06-13 00:00:00 pap, LB + reflex to HR HPV if ASC-U [code = pap, LB + reflex to HR HPV if ASC-U] [facility] Diagnostic Test Pending 2020-06-13 00:00:00 culture, urine [code = culture, urine] [facility] Instructions [facility] Encounters Start Date/Time End Date/Time Encounter Type Admission Type Attending Clinicians Care Facility Care Department Encounter ID Source 2024-01-21 09:30:00 Inpatient VIRAJ DOMINGO [facility] [id number] [facility] 2024-01-14 15:30:00 Inpatient VIRAJ DOMINGO [facility] [id number] [facility] 2024-11-07 17:19:00 2024-11-07 20:40:00 Emergency ER BILLIEAMERICA [facility] [id number] [facility] 2024-09-17 20:24:00 2024-09-18 03:25:00 Emergency ER FILOMENA COLINDRES [facility] [id number] [facility] 2024-02-25 15:58:00 2024-02-25 15:58:00 Outpatient VIRAJ DOMINGO [facility] [id number] [facility] 2023-11-23 09:09:30 2023-11-23 23:59:00 Outpatient VIVEK [facility] [id number] [facility] 2023-11-23 09:09:30 2023-11-23 23:59:00 Hospital Encounter Vivek Perez [facility] [id number] [facility] 2023-11-04 12:43:00 2023-11-04 12:43:00 Outpatient ROSSANA BOWEN [facility] [id number] [facility] 2023-09-07 00:00:00 2023-09-07 00:00:00 Outpatient Hawkins_M [facility] [id number] [facility] 2023-07-15 00:00:00 2023-07-15 00:00:00 Outpatient Hawkins_M [facility] [id number] [facility] 2023-07-15 00:00:00 2023-07-15 00:00:00 Asuncion Clay, RESORT KEEPER: [address], [address], [place] [address] , Ph[address] [facility] [id number] [facility] 2023-07-13 09:30:00 2023-07-13 09:30:00 Outpatient VIVEK [facility] [id number] [facility] 2023-03-01 00:00:00 2023-03-01 00:00:00 Orders Only Doctor Unassigned, Roy [place] [id number] [facility] 2023-01-18 00:00:00 2023-01-18 00:00:00 Orders Only Doctor Unassigned, Roy [facility] [id number] [id number] [facility] 2023-01-08 14:15:00 2023-01-08 15:39:22 Outpatient AMARILYS CALDERÓN [facility] [id number] [facility] 2023-01-08 00:00:00 2023-01-08 00:00:00 Orders Only Doctor Unassigned, Roy [facility] [id number] [id number] [facility] 2023-01-04 07:35:00 2023-01-05 13:12:00 Inpatient ER CARRI DANIEL [facility] [id number] [facility] 2023-01-03 21:20:00 2023-01-03 18:26:00 Inpatient ER Carri Daniel [facility] [id number] [facility] 2022-06-10 00:00:00 2022-06-10 00:00:00 Outpatient AMBREEN_KATERINA [facility] [id number] [facility] 2020-09-25 02:26:00 2020-09-25 02:26:00 Outpatient G_Pappas [facility] [id number] [facility] 2020-06-14 12:20:00 2020-06-14 12:20:00 Outpatient G_Pappas [facility] [id number] [facility] 2020-06-13 16:29:00 2020-06-13 16:29:00 Outpatient KIRBY BURGESS [facility] [id number] [facility] 2020-06-13 00:00:00 2020-06-13 00:00:00 Kirby Tolliver MD: [address] [address] , Ph. [phone] G_Pappas [facility] - OBGYN [id number] [facility] 2020-06-01 12:14:00 2020-06-01 12:14:00 Outpatient G_Pappas [facility] [id number] [facility] 2020-05-19 10:04:00 2020-05-19 10:04:00 Outpatient G_Pappas [facility] [id number] [facility] 2020-05-17 00:00:00 2020-05-17 00:00:00 Kirby Tolliver MD: [address] [address] , Ph. [phone] [id number] [facility] 2019-06-10 11:06:00 2019-06-10 11:06:00 Outpatient G_Pappas [facility] [id number] [facility] 2019-05-25 00:00:00 2019-05-25 00:00:00 Kirby Tolliver MD: [address], [address], [place] [address] , Ph. [phone] [id number] [facility] 2019-05-08 11:36:00 2019-05-08 11:36:00 Outpatient OG SLATERKI [facility] [id number] [facility] 2019-05-08 00:00:00 2019-05-08 00:00:00 Mackenzie Tanner, NP: [address], [address], [place] [address] , Ph. [phone] [facility] [id number] 701 [facility] 2018-11-22 16:10:00 2018-11-22 16:10:00 Outpatient ZULEYMA TANNERMACKENZIE [facility] [id number] [facility] 2018-11-22 00:00:00 2018-11-22 00:00:00 Mackenzie Tanner, NP: [address] [place] [address] , Ph. [phone] [facility] Sharee [id number] 115 [facility] 2016-03-11 07:13:00 2016-03-11 07:13:00 Outpatient KIRBY BURGESS [facility] [id number] [facility] 2016-01-05 18:00:00 2016-01-08 09:30:00 [facility] [id number] [facility] 2015-12-27 11:21:00 2015-12-27 11:21:00 Outpatient KIRBY BURGESS [facility] [id number] [facility] 2015-12-06 16:33:00 2015-12-06 18:37:00 Emergency ER SHAREE KIRBY [facility] [id number] [facility] 2015-11-22 14:56:00 2015-11-22 14:56:00 Outpatient ZULEYMA TOLLIVER KIRBY [facility] [id number] [facility] 2015-10-28 12:56:00 2015-10-28 12:56:00 Outpatient KIRBY ALVAREZ [facility] [id number] [facility] 2015-10-21 08:04:00 2015-10-21 08:04:00 Outpatient KIRBY ALVAREZ [facility] [id number] [facility] 2015-10-14 08:03:00 2015-10-14 08:03:00 Outpatient KIRBY ALVAREZ [facility] [id number] [facility] 2015-08-29 02:39:00 2015-08-29 05:36:00 Emergency ER JOANNE HARPER [facility] [id number] [facility] 2015-08-28 16:07:00 2015-08-28 16:07:00 Outpatient KIRBY ALVAREZ [facility] [id number] [facility] 2015-08-07 14:17:00 2015-08-07 14:17:00 Outpatient KIRBY ALVAREZ [facility] [id number] [facility] 2015-07-01 16:23:00 2015-07-01 16:23:00 Outpatient KIRBY ALVAREZ [facility] [id number] [facility] 2015-06-24 15:33:00 2015-06-24 15:33:00 Outpatient KIRBY ALVAREZ [facility] [id number] [facility] 2015-05-31 10:30:00 2015-05-31 10:30:00 Outpatient KIRBY ALVAREZ [facility] [id number] [facility] 2015-05-20 12:56:00 2015-05-20 16:25:00 Emergency ER MEIR KAYE [facility] [id number] [facility] 2014-12-09 13:52:00 2014-12-09 17:00:00 Emergency ER LEEROY MAI [facility] [id number] [facility] 2014-08-22 17:49:00 2014-08-27 12:26:00 Inpatient ER HARSHA ENGEL [facility] [id number] [facility] 2014-07-14 03:14:00 2014-07-15 17:50:00 Inpatient ER KIRBY GARZA [facility] [id number] [facility] 2014-01-10 10:20:00 2014-01-10 10:20:00 Outpatient DAYA RICE [facility] [id number] [facility] 2011-05-18 20:59:00 2011-05-19 03:57:00 Emergency ER OZIEL GRIFFIN [facility] [id number] [facility] 2010-10-07 22:17:00 2010-10-08 00:12:00 Emergency ER OZIEL GRIFFIN [facility] [id number] [facility] 2010-10-03 16:00:00 2010-10-03 19:22:00 Emergency ER JORGE A GARCIA [facility] [id number] [facility] Results Test Description Test Time Test Comments Results Result Co mments Source [facility], [id number] 08:55:00* Test Item Value Reference Range Interpretation Comme nts Test (test code = Test) negative [facility], [id number] 10:59:00* Test Item Value Reference Range Interpretation Comme nts Test (test code = Test) negative [facility] - [id number] 10:44:00* Test Item Value Reference Range Interpretation Comme nts Leukocytes (test code = Leukocytes) Negative Nitrite (test code = Nitrite) negative Urobilinogen (test code = Urobilinogen) .2 Protein (test code = Protein) Negative pH (test code = pH) 7.0 Blood (test code = Blood) Non-Hemolyzed: Trace Specific Naper (test code = Specific Naper) 1.025 Ketone (test code = Ketone) Negative Bilirubin (test code = Bilirubin) Negative Glucose (test code = Glucose) Negative Appearance (test code = Appearance) Clear Color (test code = Color) Yellow [facility] Differential panel - [id number] 09:43:00 * Test Item Value Reference Range Interpretation Comme nts white blood count (test code = white blood count) 11.8 K/uL 4.0-11.5 H red blood count (test code = red blood count) 5.34 M/uL 3.80-5.20 H hemoglobin (test code = hemoglobin) 14.6 g/dL 10.5-15.7 hematocrit (test code = hematocrit) 47.5 % 34.0-50.0 Erythrocyte mean corpuscular volume [Entitic volume] (test code = 26605-5) 89.0 fL 86-100 Erythrocyte mean corpuscular hemoglobin [Entitic mass] (test code = 28381-1) 27.3 pg 26.2-33.4 mean corpuscular HGB conc (t est code = mean corpuscular HGB conc) 30.7 g/dL 30-34 red cell distribution width (test code = red cell distribution width) 13.4 % 12.0-15.5 platelet count (test code = platelet count) 339 K/uL 165-450 mean platelet volume (test c ode = mean platelet volume) 11.2 fL 9.4-12.6 Neutrophils.segmented/100 leukocytes in Blood (test code = 97715-0) 71.2 % 44.4-80.1 Ig% (test code = Ig%) 0.5 % 0.0-0.4 H lymphocyte% (test code = lymphocyte%) 21.9 % 10.0-50.0 Monocytes/100 leukocytes in Blood by Automated count (test code = 5905-5) 4.8 % 3.6-12.0 Eosinophils/100 leukocytes i n Blood by Automated count (test code = 713-8) 1.0 % 0.0-5.4 Basophils/100 leukocytes in Unspecified specimen (test code = 25947-8) 0.6 % 0.1-1.2 absolute neutrophil count (t est code = absolute neutrophil count) 8.40 K/uL 1.56-6.13 H Ig# (test code = Ig#) 0.1 K/uL 0.0-0.03 H Lymphocytes [#/volume] in Unspecified specimen by Automated count (test code = 17949-7) 2.6 K/uL 1.18-3.74 mono # (test code = mono #) 0.57 K/uL 0.24-0.86 eos # (test code = eos #) 0.12 K/uL 0.04-0.36 basophil # (test code = baso delmy #) 0.07 K/uL 0.01-0.08 NRBC% (test code = NRBC%) 0 /100 WBC 0-0.2 NRBC# (test code = NRBC#) 0 K/uL [facility], [id number] 09:43:00 NeutrophilsBandLymphocyteMonocyteMetamyelocytePlatelet EstimateToxic VacuolationGiant PlateletsMaMagee General HospitalHemoglobin A1c [Mass/volume] in [id number] 09:43:00* Test Item Value Reference Range Interpretation Comme nts Hemoglobin A1c in Blood (jose t code = 03560-1) 5.8 % 4.0-6.0 [facility] HospitalComprehensive metabolic 2000 panel - Serum or [...] (test code = 6768-6) 72 U/L 35-105 [facility] HospitalThyrotropin [Units/volume] in Serum or [id number] 09:43:00* Test Item Value Reference Range Interpretation Comme nts Thyrotropin [Units/volume] i n Serum or Plasma (test code = 3016-3) 1.74 uIU/mL 0.36-3.74 [facility] HospitalChoriogonadotropin.beta subunit [Units/volume] in Serum or [id number] 09:43:00* Test Item Value Reference Range Interpretation Comme nts HCG quantitative (test code = HCG quantitative) <0.1 0-5 [facility] HospitalChlamydia trachomatis+Neisseria gonorrhoeae DNA [Presence] in Cervix by Probe and target amplification [id number] 09:43:00 ResultsMaMagee General HospitalMicroscopic observation [Identifier] in Cervix by Cyto stain.thin [id number] 00:00:00ResultsMaMagee General HospitalUrinalysis macro (dipstick) panel - [id number] 15:20:22* Test Item Value Reference Range Interpretation Comme nts Leukocytes (test code = Leukocytes) Trace Nitrite (test code = Nitrite) negative Urobilinogen (test code = Urobilinogen) .2 Protein (test code = Protein) 30 pH (test code = pH) 6.0 Blood (test code = Blood) Moderate Specific Naper (test code = Specific Naper) 1.030 Ketone (test code = Ketone) Small Bilirubin (test code = Bilirubin) Negative Glucose (test code = Glucose) Negative Appearance (test code = Appearance) Clear Color (test code = Color) Yellow [facility] Hospitalpregnancy test, [id number] 15:19:02* Test Item Value Reference Range Interpretation Comme nts Test (test code = Test) negative [facility]
[2024-11-15] MEDS ORDERED: MORPHINE 4 MG/ML SYR ONE ×2 (11:43→12:52)
[2024-11-15] MEDS ORDERED: ONDANSETRON 4 MG/2 ML VIAL ONE (11:43)
--- NOTE | 2024-11-15 11:47 | RAD REPORT ---
EXAMINATION: US Abdomen Exam Limited CLINICAL HISTORY: [facility] MAIN Y ABD PAIN Bed Name: [id number] COMPARISON: CT abdomen and pelvis 11/09/2024 TECHNIQUE: Limited upper abdominal grayscale and color flow sonographic images. FINDINGS: Gallbladder: Large calculus near the fundus measuring 2.3 cm. No wall thickening or pericholecystic f luid. Some sludge near the gallbladder neck. No reported sonographic Acosta's sign. Bile ducts: No intrahepatic or extrahepatic biliary dilatation. Common bile duct measures 2 mm. Liver: Visualized portions of the liver demonstrate normal echogenicity with no suspicious findings. Fluid: No ascites. IMPRESSION: Cholelithiasis. No sonographic findings to suggest acute cholecystitis.
[2024-11-15 12:10] LABS: Absolute Basophils 0.1 K/uL (0-0.5); Absolute Lymphocytes (CBC) 2.5 K/uL (0.7-4.9); Absolute Monocytes 0.6 K/uL (0.1-1.3); Absolute Neutrophil 5.4 K/uL (1.8-8.0); Eosinophils % 0.4 % (0-4.4); Hematocrit 46.3 % (36.0-45.0); Hemoglobin 15.4 g/dL (12.0-15.0); Lymphocytes % 28.5 % (15.3-44.8); MCH 30.3 pg (27.0-35.0); MCHC 33.2 g/dL (32.0-36.0); MCV 91.2 fL (80-100); MPV 9.5 fL (7.6-11.3); Monocytes % 7.1 % (3.3-12.3); Platelets 329 thou/uL (152-406); RBC Red Blood Cell Count 5.08 M/uL (3.86-4.86); Red Cell Distribution Width 13.1 % (12.1-15.2)
[2024-11-15 12:55] LABS: Albumin 3.1 g/dL (3.4-5.0); Anion Gap 6.4 mEq/L (5.0-15.0); Bilirubin Total 0.4 mg/dL (0.2-1.0); Globulin 3.1 g/dL (2.3-3.5); Protein, Total 6.2 g/dL (6.4-8.2)
[2024-11-15 12:58] LABS: Urine Bilirubin Negative (Negative); Urine Blood Trace-intact (Negative); Urine Clarity Clear (Clear); Urine Color Yellow (Yellow); Urine Glucose Negative (Negative); Urine Ketones Negative (Negative); Urine Protein Negative (Negative); Urine Urobilinogen Normal mg/dL (0.2-1.0)
[2024-11-15 12:59] LABS: Urine Nitrite Negative (Negative)
[2024-11-15 13:03] LABS: Potassium 3.4 mEq/L (3.5-5.1)
[2024-11-15 13:24] LABS: Sqamous Epithelial <5 /HPF (None Seen); Urine Bacteria None Seen /HPF (<20); Urine Crystals Unidentified Few /HPF (None Seen); Urine Culture Reflex Order NOT NEEDED; Urine Microscopic Reflex YN ORDER UMIC; Urine Mucus 2+ /HPF (None Seen); Urine RBC <5 /HPF (None Seen); Urine WBC <5 /HPF (<5); Urine Yeast (Budding) Trace /HPF (None Seen)
--- NOTE | 2024-11-15 14:15 | ER ---
Nurse's Notes [facility] Name: Kiesha Joiner Age: 34 yrs Sex: Female : 1990 Arrival Date: 11/15/2024 Time: 10:23 Bed 19 Private MD: Diagnosis: Other cholelithiasis without obstruction Presentation: 11/15 10:40 Chief complaint: Patient states: still having abd pain , n/v , was seen here on the 2nd iw and was told she had gallstones. Coronavirus screen: At this time, the client does not indicate any symptoms associated with coronavirus-19. Ebola Screen: No symptoms or risks identified at this time. Initial Sepsis Screen: Does the patient meet any 2 criteria? No. Patient's initial sepsis screen is negative. Does the patient have a suspected source of infection? No. Patient's initial sepsis screen is negative. Risk Assessment: Do you want to hurt yourself or someone else? Patient reports no desire to harm self or others. Onset of symptoms was November 2024. 10:40 Method Of Arrival: Ambulatory iw 10:40 Acuity: KONSTANTIN 3 iw Triage Assessment: 10:45 General: Appears in no apparent distress. uncomfortable, Behavior is calm, cooperative, bp appropriate for age. Pain: Complains of pain in abdomen. EENT: No deficits noted. Neuro: No deficits noted. Cardiovascular: No deficits noted. Respiratory: No deficits noted. GI: Reports upper abdominal pain. : No signs and/or symptoms were reported regarding the genitourinary system. Derm: No deficits noted. Musculoskeletal: No deficits noted. 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 - Infectious Disease History:: Denies. - Social history:: Smoking status: Patient denies any tobacco usage or history of. - Family history:: not pertinent. - Hospitalizations: : No recent hospitalization is reported. Screenin:14 [facility] ED Fall Risk Assessment (Adult) History of falling in the last 3 months, bp including since admission No falls in past 3 months (0 pts) Confusion or Disorientation No (0 pts) Intoxicated or Sedated No (0 pts) Impaired Gait No (0 pts) Mobility Assist Device Used No (0 pt) Altered Elimination No (0 pt) Score/Fall Risk Level 0 - 2 = Low Risk Oriented to surroundings. Abuse screen: Denies threats or abuse. Denies injuries from another. Nutritional screening: No deficits noted. Tuberculosis screening: No symptoms or risk factors identified. Assessment: 10:45 General: Appears in no apparent distress. Behavior is calm, cooperative, appropriate bp for age. Pain: Complains of pain in abdomen. Vital Signs: 10:40 BP 141 / 94; Pulse 73; Resp 16; Temp 98.4; Pulse Ox 100% on R/A; Weight 88.9 kg; Height iw 5 ft. 4 in. ; Pain 7/10; 12:13 BP 114 / 74; Pulse 67; Resp 16; Pulse Ox 99% ; bp 14:38 BP 121 / 69; Pulse 71; Resp 16; Pulse Ox 99% ; bp 10:40 Body Mass Index 33.64 (88.90 kg, 162.56 cm) iw 10:40 Pain Scale: Adult iw ED Course: 10:25 Patient arrived in ED. ra3 10:30 Kojo Doyle MD is Attending Physician. rn 10:41 Triage completed. iw 10:41 Arm band placed on. iw 10:45 Inserted saline lock: 20 gauge in right antecubital area, using aseptic technique. bp Blood collected. Flushed with 10 mL NS. 11:17 US Abdomen Limited In Process Unspecified. EDMS 11:38 Dave Kelley, RN is Primary Nurse. bp 12:14 Patient has correct armband on for positive identification. bp 14:14 Gerson Gayle MD is Referral Physician. rn 14:38 Provided Education on: NA. bp 14:38 No provider procedures requiring assistance completed. IV discontinued, intact, bp bleeding controlled, No redness/swelling at site. Pressure dressing applied. Administered Medications: 11:55 Drug: morphine IVP or IV 4 mg IVP once over 4 mins Route: IVP; Infused Over: 4 mins; bp Site: right antecubital; 14:39 Follow up: Response: No adverse reaction bp 11:55 Drug: Ondansetron IVP 4 mg IVP once; over 2 minutes Route: IVP; Site: right antecubital;bp 14:39 Follow up: Response: No adverse reaction bp 12:55 Drug: morphine IVP or IV 4 mg IVP once over 4 mins Route: IVP; Infused Over: 4 mins; bp Site: right antecubital; 14:39 Follow up: Response: No adverse reaction bp Medication: 14:38 VIS not applicable for this client. bp Outcome: 14:14 Discharge ordered by . rn 14:38 Discharged to home ambulatory, bp 14:38 Condition: stable 14:38 Discharge instructions given to patient, Instructed on discharge instructions, follow up and referral plans. Demonstrated understanding of instructions, follow-up care, 14:39 Patient left the ED. bp Signatures: Dispatcher [employer] EDAlondra Machuca, RN Kojo Titus MD MD rn Peltier, Brian RN Anita Lawton ra3
--- NOTE | 2024-11-15 14:15 | EDPHYS ---
Physician Documentation [facility] Name: Kiesha Joiner Age: 34 yrs Sex: Female : 1990 Arrival Date: 11/15/2024 Time: 10:23 Bed 19 Private MD: ED Physician Kojo Doyle HPI: 11/15 13:07 This 34 yrs old Female presents to ER via Ambulatory with complaints of Not rn feeling well. 13:07 The patient presents with abdominal pain in the right upper quadrant. Onset: The rn symptoms/episode began/occurred 2 week(s) ago. The symptoms do not radiate. Associated signs and symptoms: Pertinent positives: nausea and vomiting, Pertinent negatives: blood in stools, chest pain, fever. The symptoms are described as achy, crampy. Modifying factors: The symptoms are alleviated by nothing, the symptoms are aggravated by food, touching the area. Severity of pain: At its worst the pain was mild in the emergency department the pain is unchanged. The patient has experienced similar episodes in the past. Patient reports right upper quadrant abdominal pain with vomiting. Patient reports pain for the last 2 weeks. Worse with food. Has been seen twice for this and not improving. Has not had a chance to follow-up with general surgery.. 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 - Infectious Disease History:: Denies. - Social history:: Smoking status: Patient denies any tobacco usage or history of. - Family history:: not pertinent. - Hospitalizations: : No recent hospitalization is reported. ROS: 13:07 Constitutional: Negative for fever, chills, and weight loss, Cardiovascular: Negative rn for chest pain, palpitations, and edema, Respiratory: Negative for shortness of breath, cough, wheezing, and pleuritic chest pain, Abdomen/GI: Positive for abdominal pain with nausea and vomiting MS/Extremity: Negative for injury and deformity, Skin: Negative for injury, rash, and discoloration, Neuro: Negative for headache, weakness, numbness, tingling, and seizure, Exam: 13:07 Constitutional: This is a well developed, well nourished patient who is awake, alert, rn and in no acute distress. Cardiovascular: Regular rate and rhythm with a normal S1 and S2. No gallops, murmurs, or rubs. Normal PMI, no JVD. No pulse deficits. Respiratory: Lungs have equal breath sounds bilaterally, clear to auscultation and percussion. No rales, rhonchi or wheezes noted. No increased work of breathing, no retractions or nasal flaring. Abdomen/GI: Soft, mild right upper quadrant tenderness. No rebound or guarding. Negative Acosta Vital Signs: 10:40 BP 141 / 94; Pulse 73; Resp 16; Temp 98.4; Pulse Ox 100% on R/A; Weight 88.9 kg; Height iw 5 ft. 4 in. ; Pain 7/10; 12:13 BP 114 / 74; Pulse 67; Resp 16; Pulse Ox 99% ; bp 14:38 BP 121 / 69; Pulse 71; Resp 16; Pulse Ox 99% ; bp 10:40 Body Mass Index 33.64 (88.90 kg, 162.56 cm) iw 10:40 Pain Scale: Adult iw MDM: 10:30 Medical Screening Exam initiated rn 14:13 Differential diagnosis: cholecystitis, Cholelithiasis, gastritis, gastroesophageal rn reflux disease, non-specific abd pain, pancreatitis, Peptic Ulcer Disease. Data reviewed: vital signs, nurses notes, lab test result(s), radiologic studies, ultrasound, and as a result, I will discharge patient. Counseling: I had a detailed discussion with the patient and/or guardian regarding the historical points, exam findings, and any diagnostic results supporting the discharge/admit diagnosis, lab results, radiology results, the need for outpatient follow up, to return to the emergency department if symptoms worsen or persist or if there are any questions or concerns that arise at home. Special discussion: Based on the patient's Hx, exam, and Dx evaluation, there is no indication for emergent surgery or inpatient Tx. It is understood by the patient/guardian that if the Sx's persist or worsen they need to return immediately for re-evaluation. I discussed with the patient/guardian in detail that at this point there is no indication for admission to the hospital. It is understood, however, that if the symptoms persist or worsen the patient needs to return immediately for re-evaluation. 14:13 Special discussion: Based on the history and exam findings, there is no indication for rn further emergent testing or inpatient evaluation. I discussed with the patient/guardian the need to see the general surgeon for further evaluation of the symptoms. ED course: No acute findings and workup, still shows cholelithiasis. Recommend general surgery follow-up with diet modification and given return precautions.. 11/15 10:54 Order name: CBC with Diff; Complete Time: 12:44 rn 11/15 10:54 Order name: CMP; Complete Time: 13:03 rn 11/15 10:54 Order name: Lipase; Complete Time: 13:03 rn 11/15 10:54 Order name: Test, Urine; Complete Time: 12:44 rn 11/15 10:54 Order name: Urinalysis w/ reflexes; Complete Time: 13:50 rn 11/15 10:54 Order name: US Abdomen Limited; Complete Time: 11:47 rn 11/15 10:54 Order name: IV Saline Lock; Complete Time: 11:55 rn 11/15 10:54 Order name: Labs collected and sent; Complete Time: 11:55 rn 11/15 12:15 Order name: Labs - recollect needed: recollect the chemistries/ hemolyzed per leticia Garcia; Complete Time: 12:20 Administered Medications: 11:55 Drug: morphine IVP or IV 4 mg IVP once over 4 mins Route: IVP; Infused Over: 4 mins; bp Site: right antecubital; 14:39 Follow up: Response: No adverse reaction bp 11:55 Drug: Ondansetron IVP 4 mg IVP once; over 2 minutes Route: IVP; Site: right antecubital;bp 14:39 Follow up: Response: No adverse reaction bp 12:55 Drug: morphine IVP or IV 4 mg IVP once over 4 mins Route: IVP; Infused Over: 4 mins; bp Site: right antecubital; 14:39 Follow up: Response: No adverse reaction bp Disposition Summary: 11/15/24 14:14 Discharge Ordered Notes: Location: Home rn Problem: an ongoing problem rn Symptoms: have improved rn Condition: Stable rn Diagnosis - Other cholelithiasis without obstruction rn Followup: rn - With: Gerson Gayle MD - When: As needed - Reason: Recheck today's complaints, Re-evaluation by your physician Discharge Instructions: - Discharge Summary Sheet rn - Cholelithiasis rn Forms: - Medication Reconciliation Form rn - Antibiotic furniture designer - Prescription Opioid Use rn - Patient Portal Instructions rn - Leadership Thank You Letter rn - Work release form Signatures: Dispatcher [employer] EDAlondra Machuca, NOMI MOSHER Kojo Doyle MD MD rn Peltier, Brian, RN RN bp Botello, Elizabeth eb Corrections: (The following items were deleted from the chart) 10:55 10:55 CBC+H.LAB.BRZ ordered. EDMS EDMS 10:55 10:55 COMPREHENSIVE METABOLIC PANEL+C.LAB.BRZ ordered. EDMS EDMS 10:55 10:55 LIPASE+C.LAB.BRZ ordered. EDMS EDMS 10:55 10:55 Test, Urine+UC.LAB.BRZ ordered. EDMS EDMS 10:55 10:55 Urinalysis+U.LAB.BRZ ordered. EDMS EDMS 10:55 10:55 Abdomen Limited+US.RAD.BRZ ordered. EDMS EDMS
[2024-11-15 15:01] VITALS: TEMP 98.4
[2024-11-15 15:02] VITALS: O2SAT 99
[2024-11-15 15:03] VITALS: BP 121/69
== END 2024-11-15 14:39 | disposition home or self-care (01) ==
LOC: ER 10:23
DX: K80.80 Other cholelithiasis without obstruction (principal)
CPT/HCPCS: 85025; 81001; 36415; 81025; 83690; 80053; 76705; 96375; 96374; 99284; J2405